=== PATIENT | male | born 1975 ===

== ENCOUNTER 2019-01-30 09:42 | Inpatient (IN) | payer OTHER, BC ==
[~2019-01-30] VITALS: Ht 185.4 cm; Wt 111.2 kg
[2019-01-30] MEDS ORDERED: IV NORMAL SALINE 1000ML BAG 1,000 ML IV SCH (09:48)
[2019-01-30] MEDS ORDERED: ONDANSETRON PF 4 MG/2 ML VIAL. IV ONE (10:00)
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
[2019-01-30] MEDS: HYDROmorphone 2 MG/ML VIAL IV/SQ PRN ×2 (10:05→11:41)
[2019-01-30 10:07] LABS: BASO % 1 % (0-3); EOS # 0.2 x10^3/uL (0.0-0.7); EOS % 2 % (0-3); HEMATOCRIT 45.7 % (39.0-53.0); HEMOGLOBIN 15.6 g/dL (13.0-17.5); LYMPH # 2.2 x10^3/uL (1.0-4.8); LYMPH % 27 % (24-48); MEAN CORPUSCULAR HEMOGLOBIN 29 pg (25-35); MEAN CORPUSCULAR HGB CONC 34 g/dL (31-37); MEAN CORPUSCULAR VOLUME 85 fL (79-100); MONO # 0.3 x10^3/uL (0.0-1.1); MONO % 4 % (0-9); NEUT # 5.2 x10^3/uL (1.8-7.7); NEUT % 66 % (31-73); PLATELET COUNT 243 x10^3/uL (140-400); RED BLOOD COUNT 5.38 x10^6/uL (4.30-5.70); RED CELL DISTRIBUTION WIDTH 13.2 % (11.5-14.5)
[2019-01-30 10:14] LABS: PROTHROMBIN TIME PATIENT 12.5 SEC (11.7-14.0)
[2019-01-30 10:14] LABS: CREATININE ISTAT 0.7 mg/dL (0.5-1.4); HEMOGLOBIN ISTAT 15.6 g/dL (14-18); ION CA ISTAT 1.12 mmol/L (1.13-1.32); POTASSIUM ISTAT 4.4 mmol/L (3.5-5.0)
[2019-01-30 10:20] LABS: CREATININE 0.9 mg/dL (0.7-1.3); GFR 91.7; POTASSIUM 4.5 mmol/L (3.5-5.1)
[2019-01-30 10:35] LABS: ALBUMIN 3.8 g/dL (3.4-5.0); ALBUMIN/GLOBULIN RATIO 1.1 (1.0-1.7); TOTAL BILIRUBIN 0.6 mg/dL (0.2-1.0); TOTAL PROTEIN 7.3 g/dL (6.4-8.2)
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
[2019-01-30] MEDS ORDERED: IOHEXOL 300 MG/ML 100ML VIAL. IV ONE (11:15)
--- NOTE | 2019-01-30 11:17 | EKG ---
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
[2019-01-30] MEDS ORDERED: CONTRAST GIVEN. MC PRN (11:30)
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
[2019-01-30] MEDS ORDERED: ACETAMINOPHEN 500 MG TABLET PO PRN (13:00)
[2019-01-30] MEDS ORDERED: fentaNYL PF VIAL 100 MCG/2 ML VIAL IV PRN (13:00)
[2019-01-30] MEDS ORDERED: HYDROmorphone 2 MG/ML VIAL IVP PRN (13:00)
[2019-01-30] MEDS ORDERED: ONDANSETRON PF 4 MG/2 ML VIAL. IV PRN (13:00)
[2019-01-30] MEDS ORDERED: ONDANSETRON PF 4 MG/2 ML VIAL. IVP PRN ×2 (13:00→13:45)
[2019-01-30] MEDS ORDERED: ZOLPIDEM 5 MG TABLET. PO PRN (13:00)
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
[2019-01-30] MEDS ORDERED: ALPRAZolam 0.5 MG TABLET PO PRN (13:15)
[2019-01-30] MEDS ORDERED: IV NORMAL SALINE 1000ML BAG 1,000 ML IV ONE (13:30)
[2019-01-30] MEDS: LIDOCAINE (700MG/PATCH) PATCH. TD SCH (13:49)
[2019-01-30] MEDS: MUPIROCIN 2 % TOPICAL CREAM 30GM TUBE. TP SCH ×2 (14:11→21:00)
[2019-01-30 15:00] VITALS: BP 118/65
[2019-01-30] MEDS: oxyCODONE/APAP 5/325 1 TAB TABLET PO PRN ×2 (15:38→20:05)
[2019-01-30] MEDS: NAPROXEN 500 MG TABLET PO SCH (15:38)
--- NOTE | 2019-01-30 18:21 | NUR ---
Patients initial lactic acid was 3.2 in ER, notified ER charge nurse and she advised to get a stat lactic acid. Received results of 3.5. notified ICU charge nurse again and she stated to notify the physician. Notified Dr. Myers, she said to continue the normal saline at 100mL continuously and repeat the lactic acid tomorrow morning, she did not want to do normal saline bolus or start antibiotics at this time.
[2019-01-30 19:00] VITALS: BP 95/61
[2019-01-30] MEDS: IV NORMAL SALINE 1000ML BAG 1,000 ML IV SCH (20:04)
[2019-01-30] MEDS ORDERED: PATCH REMOVAL. MC SCH (21:00)
[2019-01-30 22:56] LABS: BILIRUBIN,URINE NEGATIVE (NEG); CLARITY,URINE CLEAR; COLOR,URINE AMBER; NITRITE,URINE NEGATIVE (NEG); PROTEIN,URINE NEGATIVE (NEG-TRACE); UROBILINOGEN,URINE 0.2 mg/dL (0.2 mg/dL)
[2019-01-30 23:01] LABS: SQUAMOUS EPITHELIAL CELL,UR MOD /LPF
[2019-01-30 23:02] LABS: BACTERIA,URINE 0 /HPF (0-FEW)
[2019-01-30 23:05] VITALS: BP 98/55
[2019-01-31 03:13] VITALS: BP 83/48
[2019-01-31] MEDS: IV NORMAL SALINE 1000ML BAG 1,000 ML IV SCH (04:43)
[2019-01-31 07:00] VITALS: BP 115/64
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
[2019-01-31] MEDS: NAPROXEN 500 MG TABLET PO SCH (10:38)
[2019-01-31] MEDS: LIDOCAINE (700MG/PATCH) PATCH. TD SCH (10:39)
[2019-01-31] MEDS: MUPIROCIN 2 % TOPICAL CREAM 30GM TUBE. TP SCH (10:56)
[2019-01-31 11:00] VITALS: BP 115/67
[2019-01-31] MEDS ORDERED: LIDO700A21 TD (11:58)
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
--- NOTE | 2019-01-31 13:30 | NUR ---
Patient discharged to home. Discharge instructions, medications, wound care, and follow up appointments discussed with patient and spouse. Both verbalized understanding. Prescription and discharge paperwork given to patient. IV discontinued. All belongings with patient. Patient ambulated out with staff and spouse at this time to POC.
== END 2019-01-31 13:30 | disposition home or self-care (01) | DRG 605 ==
LOC: ER 09:42 → 4 NORTH 12:45 → ER 13:30
PROVIDERS: ADMIT Internal Medicine; ATTEND Internal Medicine
DX: S20.219A Contusion of unspecified front wall of thorax, initial encounter (principal); E87.2 Acidosis; R07.89 Other chest pain; S30.1XXA Contusion of abdominal wall, initial encounter; K21.0 Gastro-esophageal reflux disease with esophagitis; S16.1XXA Strain of muscle, fascia and tendon at neck level, initial encounter; E66.9 Obesity, unspecified; M46.90 Unspecified inflammatory spondylopathy, site unspecified; M48.07 Spinal stenosis, lumbosacral region; V43.52XA Car driver injured in collision with other type car in traffic accident, initial encounter; Y92.410 Unspecified street and highway as the place of occurrence of the external cause; Y93.89 Activity, other specified; Y92.89 Other specified places as the place of occurrence of the external cause; Y99.8 Other external cause status; Z90.49 Acquired absence of other specified parts of digestive tract; Z68.32 Body mass index [BMI] 32.0-32.9, adult
CPT/HCPCS: 36415; 70450; 71045; 71260; 72125; 72128; 72131; 73030; 73590; 74177; 80047; 80053; 81001; 82550; 83036; 83605; 85025; 85610; 85730; 86850; 86900; 86901; 87086; 93005; 96361; 96374; 96375; 96376; J1170; J2405; J3010; J7030; Q9967; 99285-25; G0378

== ENCOUNTER → 2019-05-11 | Outpatient (CLI) | payer OTHER, BC ==
[~2019-05-11] MED LIST: LIDO700A21 TD
[2019-05-13 12:11] LABS: ALBUM 3.7 g/dL (2.9-4.4); ALPHA 1 0.2 g/dL (0.0-0.4); ALPHA 2 0.8 g/dL (0.4-1.0); BETA 1.2 g/dL (0.7-1.3); PROTEIN TOTAL 6.9 g/dL (6.0-8.5); SPEP AG RATIO 1.2 (0.7-1.7)
[2019-05-13 19:09] LABS: ANA INTERP Negative (.)
[2019-05-17 07:13] LABS: VITAMIN E(GAMMA TOCOPHEROL) 2.2 mg/L (0.5-5.5)
== END | disposition home or self-care (01) ==
LOC: LAB 10:58
PROVIDERS: ATTEND Psychiatry & Neurology Neurology with Special Qualifications in Child Neurology
DX: G62.89 Other specified polyneuropathies (principal); Z98.84 Bariatric surgery status
CPT/HCPCS: 36415; 82607; 82746; 84165; 84446; 85651; 86038

== ENCOUNTER 2020-05-12 00:34 | Inpatient (IN) | payer BC, OTHER ==
[~2020-05-12] VITALS: Ht 182.9 cm; Wt 109.9 kg
[2020-05-12 01:49] LABS: BILIRUBIN,URINE NEGATIVE (NEG); CLARITY,URINE CLEAR; COLOR,URINE YELLOW; NITRITE,URINE NEGATIVE (NEG); PROTEIN,URINE NEGATIVE (NEG-TRACE); UROBILINOGEN,URINE 0.2 mg/dL (0.2 mg/dL)
[2020-05-12] MEDS ORDERED: ONDANSETRON PF 4 MG/2 ML VIAL. IVP ONE (02:00)
[2020-05-12] MEDS ORDERED: MORPHINE SULFATE 10 MG/ML VIAL. IV ONE ×2 (02:00→05:30)
[2020-05-12 02:01] LABS: BACTERIA,URINE 0 /HPF (0-FEW); RBC,URINE 0 /HPF (0-2); WBC,URINE OCC /HPF (0-4)
--- NOTE | 2020-05-12 02:07 | ED.ADGEN ---
Past Medical History Past Medical History: Diabetes-Type II, Other Additional Past Medical Histor: PRE-DM Past Surgical History: Appendectomy, Other Additional Past Surgical Histo: MULTIPLE CYST REMOVAL, GASTRIC SLEEVE Smoking Status: Never Smoker Alcohol Use: Occasionally Drug Use: None General Adult EDM: Chief Complaint: ABDOMINAL PAIN HPI: HPI: Patient is a 44-year-old male who presents to the emergency room complaining of severe epigastric abdominal pain that started 9 hours ago. This is progressively gotten worse since onset. He has been having intermittent pain for the last week, however it has always gone away on its own without any treat ment. Is not tried anything at home for this. It feels like a burning aching pain. He has some nausea but denies any vomiting, diarrhea, constipation, cough, runny nose, fever, shortness of breath Review of Systems: Review of Systems: Complete ROS is negative unless otherwise documented in HPI Current Medications: Current Medications Medications (Trade) Dose Ordered Sig/Gasper Start Time Stop Time Status Last Admin Dose Admin Info (CONTRAST GIVEN -- Rx MONITORING) 1 each PRN DAILY PRN 05/12/20 02:15 05/14/20 02:14 Iohexol (Omnipaque 240 Mg/ml) 30 ml 1X ONCE 05/12/20 02:15 05/12/20 02:16 DC 05/12/20 02:20 30 ML Iohexol (Omnipaque 300 Mg/ml) 75 ml 1X ONCE 05/12/20 02:15 05/12/20 02:16 DC 05/12/20 03:45 75 ML Morphine Sulfate (Morphine Sulfate) 5 mg 1X ONCE 05/12/20 05:30 05/12/20 05:31 DC 05/12/20 05:56 5 MG Ondansetron HCl (Zofran) 4 mg 1X ONCE 05/12/20 02:00 05/12/20 02:02 DC 05/12/20 02:22 4 MG Sodium Chloride 1,000 ml @ 125 mls/hr Q8H 05/12/20 05:30 05/13/20 05:29 05/12/20 13:18 125 MLS/HR Allergies: Allergies: Allergies Coded Allergies Type Severity Reaction Last Updated Verified No Known Drug Allergies 01/30/19 No Physical Exam: PE: General: Awake, alert, mild distress. Well Nourished, well hydrated. Cooperative HEENT: Atraumatic, EOMI, PERRL, airway patent, moist oral mucosa Neck: Supple, trachea midline Respiratory: CTA bilaterally, normal effort, no wheezing/crackles CV: RRR, no murmur, cap refill <2 GI: Soft, nondistended, epigastric tenderness, no masses MSK: No obvious deformities Skin: Warm, dry, intact Neuro: A&O x3, speech NL, sensory and motor grossly intact, no focal deficits Psych: Normal affect, normal mood, not suicidal or homicidal Current Patient Data: Labs: Laboratory Tests Test 05/12/20 01:25 05/12/20 02:02 Urine Collection Type Unknown Urine Color Yellow Urine Clarity Clear Urine pH 6.0 (<5.0-8.0) Urine Specific Fabius >=1.030 (1.000-1.030) Urine Protein Negative mg/dL (NEG-TRACE) Urine Glucose (UA) Negative mg/dL (NEG) Urine Ketones (Stick) 40 mg/dL (NEG) Urine Blood Negative (NEG) Urine Nitrite Negative (NEG) Urine Bilirubin Negative (NEG) Urine Urobilinogen Dipstick 0.2 mg/dL (0.2 mg/dL) Urine Leukocyte Esterase Negative (NEG) Urine RBC 0 /HPF (0-2) Urine WBC Occ /HPF (0-4) Urine Squamous Epithelial Cells Few /LPF Urine Bacteria 0 /HPF (0-FEW) Urine Mucus Mod /LPF White Blood Count 8.6 x10^3/uL (4.0-11.0) Red Blood Count 4.92 x10^6/uL (4.30-5.70) Hemoglobin 14.5 g/dL (13.0-17.5) Hematocrit 42.1 % (39.0-53.0) Mean Corpuscular Volume 86 fL (79-100) Mean Corpuscular Hemoglobin 30 pg (25-35) Mean Corpuscular Hemoglobin Concent 35 g/dL (31-37) Red Cell Distribution Width 13.5 % (11.5-14.5) Platelet Count 252 x10^3/uL (140-400) Neutrophils (%) (Auto) 80 % (31-73) H Lymphocytes (%) (Auto) 14 % (24-48) L Monocytes (%) (Auto) 5 % (0-9) Eosinophils (%) (Auto) 1 % (0-3) Basophils (%) (Auto) 0 % (0-3) Neutrophils # (Auto) 6.9 x10^3/uL (1.8-7.7) Lymphocytes # (Auto) 1.2 x10^3/uL (1.0-4.8) Monocytes # (Auto) 0.4 x10^3/uL (0.0-1.1) Eosinophils # (Auto) 0.1 x10^3/uL (0.0-0.7) Basophils # (Auto) 0.0 x10^3/uL (0.0-0.2) Sodium Level 137 mmol/L (136-145) Potassium Level 3.9 mmol/L (3.5-5.1) Chloride Level 102 mmol/L (98-107) Carbon Dioxide Level 25 mmol/L (21-32) Anion Gap 10 (6-14) Blood Urea Nitrogen 12 mg/dL (8-26) Creatinine 0.9 mg/dL (0.7-1.3) Estimated GFR (Cockcroft-Gault) 91.3 BUN/Creatinine Ratio 13 (6-20) Glucose Level 174 mg/dL (70-99) H Calcium Level 9.0 mg/dL (8.5-10.1) Total Bilirubin 0.6 mg/dL (0.2-1.0) Aspartate Amino Transferase (AST) 80 U/L (15-37) H Alanine Aminotransferase (ALT) 134 U/L (16-63) H Alkaline Phosphatase 93 U/L (46-116) Total Protein 7.5 g/dL (6.4-8.2) Albumin 3.9 g/dL (3.4-5.0) Albumin/Globulin Ratio 1.1 (1.0-1.7) Triglycerides Level 183 mg/dL (0-150) H Lipase 835 U/L (73-393) H Laboratory Tests 05/12/20 02:02 Laboratory Tests 05/12/20 02:02 Vital Signs: Vital Signs Date Time Temp Pulse Resp B/P (MAP) Pulse Ox O2 Delivery O2 Flow Rate FiO2 05/12/20 05:34 64 132/72 (92) 96 Room Air 05/12/20 02:25 20 05/12/20 00:42 98.1 98.1 EKG: EKG: [] Heart Score: Risk Factors: Risk Factors: DM, Current or recent (<one month) smoker, HTN, HLP, family history of CAD, obesity. Risk Scores: Score 0 - 3: 2.5% MACE over next 6 weeks - Discharge Home Score 4 - 6: 20.3% MACE over next 6 weeks - Admit for Clinical Observation Score 7 - 10: 72.7% MACE over next 6 weeks - Early Invasive Strategies Radiology/Procedures: Radiology/Procedures: [] Course & Med Decision Making: Course & Med Decision Making Pertinent Labs and Imaging studies reviewed. (See chart for details) Patient is a 44-year-old male who presents to the emergency room complaining of severe epigastric abdominal pain for the last 9 hours. Patient does not have signs of peritonitis on exam. He is complaining of severe pain. Will do a full abdominal work-up including abdominal labs and CT abdomen pelvis. Patient treated symptomatically. Patient has an elevated lipase and some mild elevation of LFTs. There is concern at this time that this could be a gallstone pancreatitis. Ultrasound was ordered, however given limitation of ultrasound coverage at this time it will not be done until the morning. Consult order was placed for surgery to evaluate the patient in the morning. Patient was given fluids here in the emergency room and will be admitted to the hospitalist. Papa Disclaimer: Papa Disclaimer: This electronic medical record was generated, in whole or in part, using a voice recognition dictation system. Departure Departure Impression: Primary Impression: Pancreatitis Disposition: ADMITTED INPT THIS HOSP Condition: STABLE Referrals: CONCETTA VASQUEZ (PCP) AGATA MIRELES MD May 12, 2020 02:07
[2020-05-12] MEDS ORDERED: IOHEXOL 300 MG/ML 100ML VIAL. IV ONE (02:15)
[2020-05-12] MEDS ORDERED: CONTRAST GIVEN. MC PRN (02:15)
[2020-05-12] MEDS ORDERED: IOHEXOL 240 MG/ML 50ML VIAL. PO ONE (02:15)
[2020-05-12 03:01] LABS: BASO % 0 % (0-3); EOS # 0.1 x10^3/uL (0.0-0.7); EOS % 1 % (0-3); HEMATOCRIT 42.1 % (39.0-53.0); HEMOGLOBIN 14.5 g/dL (13.0-17.5); LYMPH # 1.2 x10^3/uL (1.0-4.8); LYMPH % 14 % (24-48); MEAN CORPUSCULAR HEMOGLOBIN 30 pg (25-35); MEAN CORPUSCULAR HGB CONC 35 g/dL (31-37); MEAN CORPUSCULAR VOLUME 86 fL (79-100); MONO # 0.4 x10^3/uL (0.0-1.1); MONO % 5 % (0-9); NEUT # 6.9 x10^3/uL (1.8-7.7); NEUT % 80 % (31-73); PLATELET COUNT 252 x10^3/uL (140-400); RED BLOOD COUNT 4.92 x10^6/uL (4.30-5.70); RED CELL DISTRIBUTION WIDTH 13.5 % (11.5-14.5); WHITE BLOOD COUNT 8.6 x10^3/uL (4.0-11.0)
[2020-05-12 03:09] LABS: CREATININE 0.9 mg/dL (0.7-1.3); GFR 91.3; POTASSIUM 3.9 mmol/L (3.5-5.1)
[2020-05-12 03:15] LABS: ALBUMIN 3.9 g/dL (3.4-5.0); ALBUMIN/GLOBULIN RATIO 1.1 (1.0-1.7); TOTAL BILIRUBIN 0.6 mg/dL (0.2-1.0); TOTAL PROTEIN 7.5 g/dL (6.4-8.2)
--- NOTE | 2020-05-12 04:17 | RAD ---
INDICATION: Reason: severe abd pain, OMNI 240 30 ML PO, OMNI 300 75 ML IV / Spl. Instructions: DRINKI NG @O220 SCANNED @0345 / History: . COMPARISON: January 2019 TECHNIQUE: Axial CT images obtained through the abdomen and pelvis with contrast. One or more of the following individualized dose reduction techniques were utilized for this examinat ion: 1. Automated exposure control; 2. Adjustment of the mA and/or kV according to patient size; 3 . Use of iterative reconstruction technique. FINDINGS: Small hiatal hernia with contrast within. Abdominal aorta is not aneurysmal. Small fat-containing right inguinal hernia. No intrahepatic bile duct dilation. Gallbladder somewhat distended with mild indistinctness of adjacent fat. No peripancreatic fluid sekou ection. Spleen is unremarkable. No left-sided hydronephrosis. Urinary bladder is partially distended. No right-sided hydronephrosis. Surgical clips right lower quadrant could be from post appendectomy changes. Degenerative changes of the spine IMPRESSION: * Gallbladder is distended with adjacent haziness the fat. Would correlate with symptoms in the soheila on given that gallbladder disease could have this appearance. If further evaluation is desired ultras ound could further evaluate. * No evidence of bowel obstruction Electronically signed by: Arnol Mallory MD (05/12/2020 4:13 AM) [id number]
[2020-05-12] MEDS ORDERED: MORPHINE SULFATE 2 MG/ML VIAL. IV PRN (05:30)
[2020-05-12] MEDS: IV NORMAL SALINE 1000ML BAG 1,000 ML IV SCH ×3 (05:57→22:04)
--- NOTE | 2020-05-12 07:10 | RAD ---
INDICATION : Reason: RUQ pain / Spl. Instructions: / History: COMPARISON: CT from earlier same day TECHNIQUE: Multiple ultrasound images obtained through the abdomen in grayscale and color. FINDINGS: Liver: Prominent in size and appears echogenic. Portions not well seen secondary to poor beam penetra tion. Gallbladder: Gallstones are seen. Dilated up to 13 cm. Wall is thickened. IVC: Partially distended at level of liver. Common Bile Duct: Upper limits of normal, 6 mm Pancreas: Obscured by bowel gas Right Kidney: No hydronephrosis. IMPRESSION: * Dilated gallbladder with thickened wall and gallstones. Would correlate with symptoms in the soheila on since cholecystitis can have this appearance in the correct clinical context. Electronically signed by: Arnol Mallory MD (05/12/2020 7:06 AM) [id number]
[2020-05-12 07:50] VITALS: BP 125/80
[2020-05-12] MEDS ORDERED: fentaNYL PF VIAL 100 MCG/2 ML VIAL IVP PRN (08:00)
[2020-05-12] MEDS ORDERED: ONDANSETRON PF 4 MG/2 ML VIAL. IVP PRN (08:00)
[2020-05-12] MEDS ORDERED: CALCIUM CARBONATE 500 MG TAB.CHEW PO PRN (08:00)
[2020-05-12] MEDS ORDERED: PROCHLORPERAZINE 10 MG/2 ML VIAL. IVP PRN (08:00)
[2020-05-12] MEDS ORDERED: ZOLPIDEM 5 MG TABLET. PO PRN (08:00)
[2020-05-12] MEDS ORDERED: HYDROmorphone 2 MG/ML VIAL IVP PRN (08:00)
[2020-05-12] MEDS ORDERED: MAGNESIUM HYDROXIDE 2,400 MG/30 ML ORAL.SUSP. PO PRN (08:00)
[2020-05-12] MEDS ORDERED: BISACODYL 10 MG SUPP.RECT. PR PRN (08:00)
[2020-05-12] MEDS ORDERED: DEXTROSE 50% 25 GM / 50ML DISP.SYRIN. IV PRN (08:15)
--- NOTE | 2020-05-12 08:15 | PDOC1 ---
History and Physical Date of Admission Date of Admission DATE: 05/12/20 TIME: 07:40 Identification/Chief Complaint Chief Complaint Abdominal pain Source Source: Chart review, Patient History of Present Illness History of Present Illness Patient is a 44-year-old male who presents to the ER with complaints of worsening epigastric pain. He has had intermittent stabbing pain for the past week, 12/11. His pain was only resolved spontaneously, but he came to the ER when his pain persisted. He reports some associated nausea, but denies any vomiting, diarrhea, or fever. CT abdomen/pelvis and ultrasound obtained in ER showing dilated gallbladder with thickened wall and gallstones, concerning for cholecystitis. Will admit patient for further medical management. Past Medical History Endocrine: Diabetes Past Surgical History Past Surgical History: Appendectomy, Other (Gastric sleeve, multiple cyst removal) Family History Family History: No Significant Social History Smoke: No ALCOHOL: occassional Drugs: None Current Problem List Problem List Problems Medical Problems: (1) Pancreatitis Status: Acute Current Medications Current Medications Current Medications Ondansetron HCl (Zofran) 4 mg 1X ONCE IVP Last administered on 05/12/20at 02:22; Start 05/12/20 at 02:00; Stop 05/12/20 at 02:02; Status DC Morphine Sulfate (Morphine Sulfate) 5 mg 1X ONCE IV Last administered on 05/12/20at 02:25; Start 05/12/20 at 02:00; Stop 05/12/20 at 02:02; Status DC Iohexol (Omnipaque 240 Mg/ml) 30 ml 1X ONCE PO Last administered on 05/12/20at 02:20; Start 05/12/20 at 02:15; Stop 05/12/20 at 02:16; Status DC Iohexol (Omnipaque 300 Mg/ml) 75 ml 1X ONCE IV Last administered on 05/12/20at 03:45; Start 05/12/20 at 02:15; Stop 05/12/20 at 02:16; Status DC Info (CONTRAST GIVEN -- Rx MONITORING) 1 each PRN DAILY PRN MC SEE COMMENTS; Start 05/12/20 at 02:15; Stop 05/14/20 at 02:14 Morphine Sulfate (Morphine Sulfate) 2 mg PRN Q2HR PRN IV PAIN; Start 05/12/20 at 05:30; Stop 05/13/20 at 05:29 Sodium Chloride 1,000 ml @ 125 mls/hr Q8H IV Last administered on 05/12/20at 05:57; Start 05/12/20 at 05:30; Stop 05/13/20 at 05:29 Morphine Sulfate (Morphine Sulfate) 5 mg 1X ONCE IV Last administered on 05/12/20at 05:56; Start 05/12/20 at 05:30; Stop 05/12/20 at 05:31; Status DC Active Scripts Active Lidocaine PATCH (Lidocaine) 1 Each Adh..patch 1 Patch TD DAILY 30 Days Reported No Known Medications Prior To Admisstion (Info) Each 1 Each MC 1X Allergies Allergies: Coded Allergies: No Known Drug Allergies (Unverified , 01/30/19) ROS Review of System GENERAL: No history of weight change, weakness or fevers. SKIN: No bruising, hair changes or rashes. EYES: No blurred, double or loss of vision. NOSE AND THROAT: No history of nosebleeds, hoarseness or sore throat. HEART: Denies chest pain, denies palpitations. LUNGS: Denies cough, hemoptysis, wheezing or shortness of breath. GASTROINTESTINAL: Abdominal pain, nausea. Denies vomiting or diarrhea. GENITOURINARY: Denies dysuria, frequency, urgency, hematuria. NEUROLOGIC: Denies history of numbness, tingling, tremor or weakness. PSYCHIATRIC: Denies anxiety, denies depression. ENDOCRINE: No history of heat or cold intolerance, polyuria or polydipsia. EXTREMITIES: Denies muscle weakness, joint pain, pain on walking or stiffness. Physical Exam Physical Exam General: Alert, Oriented X3, Cooperative, moderate distress HEENT: PERRLA, EOMI Lungs: Clear to auscultation, Normal air movement Heart: RRR, no murmurs Cardiovascular: S1, S2 Abdomen: Right upper quadrant tenderness. Normal bowel sounds, Soft. Extremities: No clubbing, No cyanosis Skin: No rashes, No significant lesion Neuro: Normal speech, Normal tone, Sensation intact Psych/Mental Status: Mental status NL, Mood NL Vitals Vitals Vital Signs Date Time Temp Pulse Resp B/P (MAP) Pulse Ox O2 Delivery O2 Flow Rate FiO2 05/12/20 06:34 64 116/71 (86) 96 Room Air 05/12/20 05:56 16 05/12/20 00:42 98.1 98.1 Labs Labs Laboratory Tests Test 05/12/20 01:25 05/12/20 02:02 Urine Collection Type Unknown Urine Color Yellow Urine Clarity Clear Urine pH 6.0 (<5.0-8.0) Urine Specific [place] >=1.030 (1.000-1.030) Urine Protein Negative mg/dL (NEG-TRACE) Urine Glucose (UA) Negative mg/dL (NEG) Urine Ketones (Stick) 40 mg/dL (NEG) Urine Blood Negative (NEG) Urine Nitrite Negative (NEG) Urine Bilirubin Negative (NEG) Urine Urobilinogen Dipstick 0.2 mg/dL (0.2 mg/dL) Urine Leukocyte Esterase Negative (NEG) Urine RBC 0 /HPF (0-2) Urine WBC Occ /HPF (0-4) Urine Squamous Epithelial Cells Few /LPF Urine Bacteria 0 /HPF (0-FEW) Urine Mucus Mod /LPF White Blood Count 8.6 x10^3/uL (4.0-11.0) Red Blood Count 4.92 x10^6/uL (4.30-5.70) Hemoglobin 14.5 g/dL (13.0-17.5) Hematocrit 42.1 % (39.0-53.0) Mean Corpuscular Volume 86 fL (79-100) Mean Corpuscular Hemoglobin 30 pg (25-35) Mean Corpuscular Hemoglobin Concent 35 g/dL (31-37) Red Cell Distribution Width 13.5 % (11.5-14.5) Platelet Count 252 x10^3/uL (140-400) Neutrophils (%) (Auto) 80 % (31-73) Lymphocytes (%) (Auto) 14 % (24-48) Monocytes (%) (Auto) 5 % (0-9) Eosinophils (%) (Auto) 1 % (0-3) Basophils (%) (Auto) 0 % (0-3) Neutrophils # (Auto) 6.9 x10^3/uL (1.8-7.7) Lymphocytes # (Auto) 1.2 x10^3/uL (1.0-4.8) Monocytes # (Auto) 0.4 x10^3/uL (0.0-1.1) Eosinophils # (Auto) 0.1 x10^3/uL (0.0-0.7) Basophils # (Auto) 0.0 x10^3/uL (0.0-0.2) Sodium Level 137 mmol/L (136-145) Potassium Level 3.9 mmol/L (3.5-5.1) Chloride Level 102 mmol/L (98-107) Carbon Dioxide Level 25 mmol/L (21-32) Anion Gap 10 (6-14) Blood Urea Nitrogen 12 mg/dL (8-26) Creatinine 0.9 mg/dL (0.7-1.3) Estimated GFR (Cockcroft-Gault) 91.3 BUN/Creatinine Ratio 13 (6-20) Glucose Level 174 mg/dL (70-99) Calcium Level 9.0 mg/dL (8.5-10.1) Total Bilirubin 0.6 mg/dL (0.2-1.0) Aspartate Amino Transf (AST/SGOT) 80 U/L (15-37) Alanine Aminotransferase (ALT/SGPT) 134 U/L (16-63) Alkaline Phosphatase 93 U/L (46-116) Total Protein 7.5 g/dL (6.4-8.2) Albumin 3.9 g/dL (3.4-5.0) Albumin/Globulin Ratio 1.1 (1.0-1.7) Triglycerides Level 183 mg/dL (0-150) Lipase 835 U/L (73-393) Laboratory Tests Test 05/12/20 01:25 05/12/20 02:02 Urine Collection Type Unknown Urine Color Yellow Urine Clarity Clear Urine pH 6.0 (<5.0-8.0) Urine Specific [place] >=1.030 (1.000-1.030) Urine Protein Negative mg/dL (NEG-TRACE) Urine Glucose (UA) Negative mg/dL (NEG) Urine Ketones (Stick) 40 mg/dL (NEG) Urine Blood Negative (NEG) Urine Nitrite Negative (NEG) Urine Bilirubin Negative (NEG) Urine Urobilinogen Dipstick 0.2 mg/dL (0.2 mg/dL) Urine Leukocyte Esterase Negative (NEG) Urine RBC 0 /HPF (0-2) Urine WBC Occ /HPF (0-4) Urine Squamous Epithelial Cells Few /LPF Urine Bacteria 0 /HPF (0-FEW) Urine Mucus Mod /LPF White Blood Count 8.6 x10^3/uL (4.0-11.0) Red Blood Count 4.92 x10^6/uL (4.30-5.70) Hemoglobin 14.5 g/dL (13.0-17.5) Hematocrit 42.1 % (39.0-53.0) Mean Corpuscular Volume 86 fL (79-100) Mean Corpuscular Hemoglobin 30 pg (25-35) Mean Corpuscular Hemoglobin Concent 35 g/dL (31-37) Red Cell Distribution Width 13.5 % (11.5-14.5) Platelet Count 252 x10^3/uL (140-400) Neutrophils (%) (Auto) 80 % (31-73) Lymphocytes (%) (Auto) 14 % (24-48) Monocytes (%) (Auto) 5 % (0-9) Eosinophils (%) (Auto) 1 % (0-3) Basophils (%) (Auto) 0 % (0-3) Neutrophils # (Auto) 6.9 x10^3/uL (1.8-7.7) Lymphocytes # (Auto) 1.2 x10^3/uL (1.0-4.8) Monocytes # (Auto) 0.4 x10^3/uL (0.0-1.1) Eosinophils # (Auto) 0.1 x10^3/uL (0.0-0.7) Basophils # (Auto) 0.0 x10^3/uL (0.0-0.2) Sodium Level 137 mmol/L (136-145) Potassium Level 3.9 mmol/L (3.5-5.1) Chloride Level 102 mmol/L (98-107) Carbon Dioxide Level 25 mmol/L (21-32) Anion Gap 10 (6-14) Blood Urea Nitrogen 12 mg/dL (8-26) Creatinine 0.9 mg/dL (0.7-1.3) Estimated GFR (Cockcroft-Gault) 91.3 BUN/Creatinine Ratio 13 (6-20) Glucose Level 174 mg/dL (70-99) Calcium Level 9.0 mg/dL (8.5-10.1) Total Bilirubin 0.6 mg/dL (0.2-1.0) Aspartate Amino Transf (AST/SGOT) 80 U/L (15-37) Alanine Aminotransferase (ALT/SGPT) 134 U/L (16-63) Alkaline Phosphatase 93 U/L (46-116) Total Protein 7.5 g/dL (6.4-8.2) Albumin 3.9 g/dL (3.4-5.0) Albumin/Globulin Ratio 1.1 (1.0-1.7) Triglycerides Level 183 mg/dL (0-150) Lipase 835 U/L (73-393) Images Images INDICATION : Reason: RUQ pain / Spl. Instructions: / History: COMPARISON: CT from earlier same day TECHNIQUE: Multiple ultrasound images obtained through the abdomen in grayscale and color. FINDINGS: Liver: Prominent in size and appears echogenic. Portions not well seen secondary to poor beam penetration. Gallbladder: Gallstones are seen. Dilated up to 13 cm. Wall is thickened. IVC: Partially distended at level of liver. Common Bile Duct: Upper limits of normal, 6 mm Pancreas: Obscured by bowel gas Right Kidney: No hydronephrosis. IMPRESSION: * Dilated gallbladder with thickened wall and gallstones. Would correlate with symptoms in the region since cholecystitis can have this appearance in the correct clinical context. Axial CT images obtained through the abdomen and pelvis with contrast. One or more of the following individualized dose reduction techniques were utilized for this examination: 1. Automated exposure control; 2. Adjustment of the mA and/or kV according to patient size; 3. Use of iterative reconstruction technique. FINDINGS: Small hiatal hernia with contrast within. Abdominal aorta is not aneurysmal. Small fat-containing right inguinal hernia. No intrahepatic bile duct dilation. Gallbladder somewhat distended with mild indistinctness of adjacent fat. No peripancreatic fluid collection. Spleen is unremarkable. No left-sided hydronephrosis. Urinary bladder is partially distended. No right-sided hydronephrosis. Surgical clips right lower quadrant could be from post appendectomy changes. Degenerative changes of the spine IMPRESSION: * Gallbladder is distended with adjacent haziness the fat. Would correlate with symptoms in the region given that gallbladder disease could have this appearance. If further evaluation is desired ultrasound could further evaluate. VTE Prophylaxis Ordered VTE Prophylaxis Devices: No VTE Pharmacological Prophylaxi: Yes Assessment/Plan Assessment/Plan Gallstone pancreatitis Transaminitis DM2 Plan: Admit patient with GI and general surgery consultations N.p.o. with IV fluids Pain management with fentanyl, dilaudid IV Zofran as needed MDSS insulin FEN - NPO PPX - Heparin FULL CODE Dispo - inpatient for above Justifications for Admission Other Justification JEAN CLAUDE CEDEÑO MD May 12, 2020 08:15
[2020-05-12] MEDS ORDERED: CALC-98 PO (09:09)
[2020-05-12] MEDS ORDERED: LACT1CAP6 PO (09:09)
[2020-05-12] MEDS ORDERED: METF500T16 PO (09:09)
[2020-05-12] MEDS ORDERED: OMEG1CAP6 PO (09:09)
[2020-05-12 10:57] VITALS: BP 112/65
[2020-05-12] MEDS: INSULIN LISPRO 300 UNITS/3 ML VIAL. SQ SCH ×2 (12:00→17:00)
[2020-05-12 14:58] VITALS: BP 110/61
--- NOTE | 2020-05-12 15:06 | PDOC2 ---
CONSULT Date of Consult Date of Consult DATE: 05/12/20 TIME: 14:59 Reason for Consult Reason for Consult: Nominal pain, pancreatitis, cholelithiasis History of Present Illness Reason for Visit: This is a pleasant 44-year-old gentleman who presents with a several day history of intermittent upper abdominal pain. He describes it as a burning pain earlier this week he felt like it might be gas and it did resolve on its own. However it seemed to recur more severely the day before admission. Associated with mild nausea but no vomiting. He had no fever. He did have a couple of loose stools this week but generally has a regular bowel pattern with 2 bowel movements per day. He denies any bleeding. He denies any regular alcohol use and does not take NSAIDs or ulcerogenic medications regularly. He had a gastric sleeve done back in 2017 and lost 90 pounds over that year. He also was diagnosed with diab etes after that and has been on medication since then. He was not aware of a diagnosis of cholelithiasis but he does not recall having had previous abdominal imaging studies done. He denies chronic heartburn, dyspepsia, nausea or other GI complaints other than some occasional dietary related symptoms. Past Medical History Endocrine: Diabetes, Other (Obesity) Past Surgical History Past Surgical History: Appendectomy, Other (Gastric sleeve, multiple cyst removal) Family History Family History: No Significant Social History No ALCOHOL: occassional Drugs: None Current Problem List Problem List Problems Medical Problems: (1) Pancreatitis Status: Acute Current Medications Current Medications Current Medications Ondansetron HCl (Zofran) 4 mg 1X ONCE IVP Last administered on 05/12/20at 02:22; Start 05/12/20 at 02:00; Stop 05/12/20 at 02:02; Status DC Morphine Sulfate (Morphine Sulfate) 5 mg 1X ONCE IV Last administered on 05/12/20at 02:25; Start 05/12/20 at 02:00; Stop 05/12/20 at 02:02; Status DC Iohexol (Omnipaque 240 Mg/ml) 30 ml 1X ONCE PO Last administered on 05/12/20at 02:20; Start 05/12/20 at 02:15; Stop 05/12/20 at 02:16; Status DC Iohexol (Omnipaque 300 Mg/ml) 75 ml 1X ONCE IV Last administered on 05/12/20at 03:45; Start 05/12/20 at 02:15; Stop 05/12/20 at 02:16; Status DC Info (CONTRAST GIVEN -- Rx MONITORING) 1 each PRN DAILY PRN MC SEE COMMENTS; Start 05/12/20 at 02:15; Stop 05/14/20 at 02:14 Morphine Sulfate (Morphine Sulfate) 2 mg PRN Q2HR PRN IV PAIN; Start 05/12/20 at 05:30; Stop 05/12/20 at 08:11; Status DC Sodium Chloride 1,000 ml @ 125 mls/hr Q8H IV Last administered on 05/12/20at 13:18; Start 05/12/20 at 05:30; Stop 05/13/20 at 05:29 Morphine Sulfate (Morphine Sulfate) 5 mg 1X ONCE IV Last administered on 05/12/20at 05:56; Start 05/12/20 at 05:30; Stop 05/12/20 at 05:31; Status DC Hydromorphone HCl (Dilaudid) 2 mg PRN Q4HRS PRN IVP PAIN; Start 05/12/20 at 08:00 Fentanyl Citrate (Fentanyl 2ml Vial) 50 mcg PRN Q2HR PRN IVP PAIN; Start 05/12 at 08:00 Ondansetron HCl (Zofran) 4 mg PRN Q6HRS PRN IVP NAUSEA/VOMITING; Start 05/12/20 at 08:00 Prochlorperazine Edisylate (Compazine) 10 mg PRN Q6HRS PRN IVP NAUSEA/VOMITING; Start 05/12/20 at 08:00 Al Hydroxide/Mg Hydroxide (Mylanta Plus Xs) 30 ml PRN Q3HRS PRN PO HEARTBURN / GAS; Start 05/12/20 at 08:00 Calcium Carbonate/ Glycine (Tums) 500 mg PRN Q3HRS PRN PO UPSET STOMACH; Start 05/12/20 at 08:00 Zolpidem Tartrate (Ambien) 5 mg PRN QHS PRN PO INSOMNIA, MAY REPEAT IN 1HR; Start 05/12/20 at 08:00 Acetaminophen (Tylenol) 650 mg PRN Q6HRS PRN PO Headaches, Temp > 101.5F; Start 05/12/20 at 08:00 Magnesium Hydroxide (Milk Of Magnesia) 2,400 mg PRN Q12HR PRN PO CONSTIPATION; Start 05/12/20 at 08:00 Bisacodyl (Dulcolax Supp) 10 mg PRN DAILY PRN [place] CONSTIPATION; Start 05/12/20 at 08:00 Heparin Sodium (Porcine) (Heparin Sodium) 5,000 unit Q8HRS SQ ; Start 05/12/20 at 14:00 Insulin Human Lispro (HumaLOG) 0-7 UNITS TIDWMEALS SQ ; Start 05/12/20 at 12:00 Dextrose (Dextrose 50%-Water Syringe) 12.5 gm PRN Q15MIN PRN IV SEE COMMENTS; Start 05/12/20 at 08:15 Active Scripts Active Reported Probiotic (Lactobacillus Acidophilus) 1 Each Capsule 1 Each PO BID Fish Oil 1,000 Mg Capsule ([place]-3 Fatty Acids/Fish Oil) 1 Each Capsule 1 Each PO BID Calcium + Vitamin D Tablet (Calcium Carbonate/Vitamin D3) 1 Each Tablet 1 Each PO BID Metformin Hcl 500 Mg Tablet 500 Mg PO BIDWMEALS No Known Medications Prior To Admisstion (Info) Each 1 Each MC 1X Allergies Allergies: Coded Allergies: No Known Drug Allergies (Unverified , 01/30/19) Physical Exam General: Alert, Oriented X3, Cooperative HEENT: Atraumatic, PERRLA Lungs: Clear to auscultation Heart: Regular rate, Normal S1, Normal S2 Abdomen: Normal bowel sounds, Soft, No hepatosplenomegaly, No masses, Other (Mild periumbilical discomfort without point tenderness) Extremities: No clubbing, No cyanosis Neuro: Normal speech Psych/Mental Status: Mental status NL Vitals VITALS Vital Signs Date Time Temp Pulse Resp B/P (MAP) Pulse Ox O2 Delivery O2 Flow Rate FiO2 05/12/20 10:57 98.7 68 16 112/65 (81) 98 Room Air 98.7 Labs Labs Laboratory Tests Test 05/12/20 01:25 05/12/20 02:02 05/12/20 08:17 05/12/20 11:44 Urine Collection Type Unknown Urine Color Yellow Urine Clarity Clear Urine pH 6.0 (<5.0-8.0) Urine Specific [place] >=1.030 (1.000-1.030) Urine Protein Negative mg/dL (NEG-TRACE) Urine Glucose (UA) Negative mg/dL (NEG) Urine Ketones (Stick) 40 mg/dL (NEG) Urine Blood Negative (NEG) Urine Nitrite Negative (NEG) Urine Bilirubin Negative (NEG) Urine Urobilinogen Dipstick 0.2 mg/dL (0.2 mg/dL) Urine Leukocyte Esterase Negative (NEG) Urine RBC 0 /HPF (0-2) Urine WBC Occ /HPF (0-4) Urine Squamous Epithelial Cells Few /LPF Urine Bacteria 0 /HPF (0-FEW) Urine Mucus Mod /LPF White Blood Count 8.6 x10^3/uL (4.0-11.0) Red Blood Count 4.92 x10^6/uL (4.30-5.70) Hemoglobin 14.5 g/dL (13.0-17.5) Hematocrit 42.1 % (39.0-53.0) Mean Corpuscular Volume 86 fL (79-100) Mean Corpuscular Hemoglobin 30 pg (25-35) Mean Corpuscular Hemoglobin Concent 35 g/dL (31-37) Red Cell Distribution Width 13.5 % (11.5-14.5) Platelet Count 252 x10^3/uL (140-400) Neutrophils (%) (Auto) 80 % (31-73) Lymphocytes (%) (Auto) 14 % (24-48) Monocytes (%) (Auto) 5 % (0-9) Eosinophils (%) (Auto) 1 % (0-3) Basophils (%) (Auto) 0 % (0-3) Neutrophils # (Auto) 6.9 x10^3/uL (1.8-7.7) Lymphocytes # (Auto) 1.2 x10^3/uL (1.0-4.8) Monocytes # (Auto) 0.4 x10^3/uL (0.0-1.1) Eosinophils # (Auto) 0.1 x10^3/uL (0.0-0.7) Basophils # (Auto) 0.0 x10^3/uL (0.0-0.2) Sodium Level 137 mmol/L (136-145) Potassium Level 3.9 mmol/L (3.5-5.1) Chloride Level 102 mmol/L (98-107) Carbon Dioxide Level 25 mmol/L (21-32) Anion Gap 10 (6-14) Blood Urea Nitrogen 12 mg/dL (8-26) Creatinine 0.9 mg/dL (0.7-1.3) Estimated GFR (Cockcroft-Gault) 91.3 BUN/Creatinine Ratio 13 (6-20) Glucose Level 174 mg/dL (70-99) Calcium Level 9.0 mg/dL (8.5-10.1) Total Bilirubin 0.6 mg/dL (0.2-1.0) Aspartate Amino Transf (AST/SGOT) 80 U/L (15-37) Alanine Aminotransferase (ALT/SGPT) 134 U/L (16-63) Alkaline Phosphatase 93 U/L (46-116) Total Protein 7.5 g/dL (6.4-8.2) Albumin 3.9 g/dL (3.4-5.0) Albumin/Globulin Ratio 1.1 (1.0-1.7) Triglycerides Level 183 mg/dL (0-150) Lipase 835 U/L (73-393) Glucose (Fingerstick) 120 mg/dL (70-99) 103 mg/dL (70-99) Laboratory Tests Test 05/12/20 01:25 05/12/20 02:02 05/12/20 08:17 05/12/20 11:44 Urine Collection Type Unknown Urine Color Yellow Urine Clarity Clear Urine pH 6.0 (<5.0-8.0) Urine Specific [place] >=1.030 (1.000-1.030) Urine Protein Negative mg/dL (NEG-TRACE) Urine Glucose (UA) Negative mg/dL (NEG) Urine Ketones (Stick) 40 mg/dL (NEG) Urine Blood Negative (NEG) Urine Nitrite Negative (NEG) Urine Bilirubin Negative (NEG) Urine Urobilinogen Dipstick 0.2 mg/dL (0.2 mg/dL) Urine Leukocyte Esterase Negative (NEG) Urine RBC 0 /HPF (0-2) Urine WBC Occ /HPF (0-4) Urine Squamous Epithelial Cells Few /LPF Urine Bacteria 0 /HPF (0-FEW) Urine Mucus Mod /LPF White Blood Count 8.6 x10^3/uL (4.0-11.0) Red Blood Count 4.92 x10^6/uL (4.30-5.70) Hemoglobin 14.5 g/dL (13.0-17.5) Hematocrit 42.1 % (39.0-53.0) Mean Corpuscular Volume 86 fL (79-100) Mean Corpuscular Hemoglobin 30 pg (25-35) Mean Corpuscular Hemoglobin Concent 35 g/dL (31-37) Red Cell Distribution Width 13.5 % (11.5-14.5) Platelet Count 252 x10^3/uL (140-400) Neutrophils (%) (Auto) 80 % (31-73) Lymphocytes (%) (Auto) 14 % (24-48) Monocytes (%) (Auto) 5 % (0-9) Eosinophils (%) (Auto) 1 % (0-3) Basophils (%) (Auto) 0 % (0-3) Neutrophils # (Auto) 6.9 x10^3/uL (1.8-7.7) Lymphocytes # (Auto) 1.2 x10^3/uL (1.0-4.8) Monocytes # (Auto) 0.4 x10^3/uL (0.0-1.1) Eosinophils # (Auto) 0.1 x10^3/uL (0.0-0.7) Basophils # (Auto) 0.0 x10^3/uL (0.0-0.2) Sodium Level 137 mmol/L (136-145) Potassium Level 3.9 mmol/L (3.5-5.1) Chloride Level 102 mmol/L (98-107) Carbon Dioxide Level 25 mmol/L (21-32) Anion Gap 10 (6-14) Blood Urea Nitrogen 12 mg/dL (8-26) Creatinine 0.9 mg/dL (0.7-1.3) Estimated GFR (Cockcroft-Gault) 91.3 BUN/Creatinine Ratio 13 (6-20) Glucose Level 174 mg/dL (70-99) Calcium Level 9.0 mg/dL (8.5-10.1) Total Bilirubin 0.6 mg/dL (0.2-1.0) Aspartate Amino Transf (AST/SGOT) 80 U/L (15-37) Alanine Aminotransferase (ALT/SGPT) 134 U/L (16-63) Alkaline Phosphatase 93 U/L (46-116) Total Protein 7.5 g/dL (6.4-8.2) Albumin 3.9 g/dL (3.4-5.0) Albumin/Globulin Ratio 1.1 (1.0-1.7) Triglycerides Level 183 mg/dL (0-150) Lipase 835 U/L (73-393) Glucose (Fingerstick) 120 mg/dL (70-99) 103 mg/dL (70-99) Images Images CT scan consistent with cholelithiasis and cholecystitis. Small hiatal hernia. No other significant GI findings. Assessment/Plan Assessment/Plan Onset this week of upper abdominal pain which progressed and recurred. He has had some minor pain in the past but it always resolved without further work-up. His labs and imaging suggest that he has likely cholelithiasis and probably mild pancreatitis associated with passage of a common bile duct stone. He has elevation of his lipase to a modest extent and has very mild transaminase elevation with normal bilirubin and alkaline phosphatase and no evidence on imaging of significant biliary dilation. Supports passage of a gallstone as a trigger. Other possibilities of pancreatitis cannot be totally excluded but seem less likely based on his negative history. Other causes for his pain such as peptic ulcer disease etc. cannot be excluded but seem less likely based on this presentation. Cholelithiasis. He was not aware he had this diagnosis. His risk factor includes the 90 pound weight loss after gastric sleeve back in 2017. He is also a diabetic which increases his morbidity from cholelithiasis and possible cholecystitis as well. Plan: N.p.o. and IV fluids Monitor labs with expectations of improvement in lipase and liver function studies. Although likely to be negative, hepatitis C screen will be performed Surgery consultation GORGE SOLARES MD May 12, 2020 15:06
--- NOTE | 2020-05-12 16:22 | PDOC2 ---
CONSULT Date of Consult Date of Consult DATE: 05/12/20 TIME: 16:20 Reason for Consult Reason for Consult: gallstone pancreatitis Referring Physician Referring Physician: Dr. Live Identification/Chief Complaint Chief Complaint epigastric abd pain Source Source: Chart review, Patient History of Present Illness Reason for Visit: 44 yo M with c/o epigastric abd pain last few days. Worsened last night prompting admission. Feels better today. Previous gastric sleeve by Dr. Lu with 90 lbs weight loss. Past Medical History Endocrine: Diabetes, Other (Obesity) Past Surgical History Past Surgical History: Appendectomy, Other (Gastric sleeve, multiple cyst removal) Family History Family History: No Significant Social History No ALCOHOL: occassional Drugs: None Current Problem List Problem List Problems Medical Problems: (1) Pancreatitis Status: Acute Current Medications Current Medications Current Medications Ondansetron HCl (Zofran) 4 mg 1X ONCE IVP Last administered on 05/12/20at 02:22; Start 05/12/20 at 02:00; Stop 05/12/20 at 02:02; Status DC Morphine Sulfate (Morphine Sulfate) 5 mg 1X ONCE IV Last administered on 05/12/20at 02:25; Start 05/12/20 at 02:00; Stop 05/12/20 at 02:02; Status DC Iohexol (Omnipaque 240 Mg/ml) 30 ml 1X ONCE PO Last administered on 05/12/20at 02:20; Start 05/12/20 at 02:15; Stop 05/12/20 at 02:16; Status DC Iohexol (Omnipaque 300 Mg/ml) 75 ml 1X ONCE IV Last administered on 05/12/20at 03:45; Start 05/12/20 at 02:15; Stop 05/12/20 at 02:16; Status DC Info (CONTRAST GIVEN -- Rx MONITORING) 1 each PRN DAILY PRN MC SEE COMMENTS; Start 05/12/20 at 02:15; Stop 05/14/20 at 02:14 Morphine Sulfate (Morphine Sulfate) 2 mg PRN Q2HR PRN IV PAIN; Start 05/12/20 at 05:30; Stop 05/12/20 at 08:11; Status DC Sodium Chloride 1,000 ml @ 125 mls/hr Q8H IV Last administered on 05/12/20at 13:18; Start 05/12/20 at 05:30; Stop 05/13/20 at 05:29 Morphine Sulfate (Morphine Sulfate) 5 mg 1X ONCE IV Last administered on 05/12/20at 05:56; Start 05/12/20 at 05:30; Stop 05/12/20 at 05:31; Status DC Hydromorphone HCl (Dilaudid) 2 mg PRN Q4HRS PRN IVP PAIN; Start 05/12/20 at 08:00 Fentanyl Citrate (Fentanyl 2ml Vial) 50 mcg PRN Q2HR PRN IVP PAIN; Start 05/12/20 at 08:00 Ondansetron HCl (Zofran) 4 mg PRN Q6HRS PRN IVP NAUSEA/VOMITING; Start 05/12/20 at 08:00 Prochlorperazine Edisylate (Compazine) 10 mg PRN Q6HRS PRN IVP NAUSEA/VOMITING; Start 05/12/20 at 08:00 Al Hydroxide/Mg Hydroxide (Mylanta Plus Xs) 30 ml PRN Q3HRS PRN PO HEARTBURN / GAS; Start 05/12/20 at 08:00 Calcium Carbonate/ Glycine (Tums) 500 mg PRN Q3HRS PRN PO UPSET STOMACH; Start 05/12/20 at 08:00 Zolpidem Tartrate (Ambien) 5 mg PRN QHS PRN PO INSOMNIA, MAY REPEAT IN 1HR; Start 05/12/20 at 08:00 Acetaminophen (Tylenol) 650 mg PRN Q6HRS PRN PO Headaches, Temp > 101.5F; Start 05/12/20 at 08:00 Magnesium Hydroxide (Milk Of Magnesia) 2,400 mg PRN Q12HR PRN PO CONSTIPATION; Start 05/12/20 at 08:00 Bisacodyl (Dulcolax Supp) 10 mg PRN DAILY PRN VT CONSTIPATION; Start 05/12/20 at 08:00 Heparin Sodium (Porcine) (Heparin Sodium) 5,000 unit Q8HRS SQ ; Start 05/12/20 at 14:00 Insulin Human Lispro (HumaLOG) 0-7 UNITS TIDWMEALS SQ ; Start 05/12/20 at 12:00 Dextrose (Dextrose 50%-Water Syringe) 12.5 gm PRN Q15MIN PRN IV SEE COMMENTS; Start 1/9/21 at 08:15 Active Scripts Active Reported Probiotic (Lactobacillus Acidophilus) 1 Each Capsule 1 Each PO BID Fish Oil 1,000 Mg Capsule ([place]-3 Fatty Acids/Fish Oil) 1 Each Capsule 1 Each PO BID Calcium + Vitamin D Tablet (Calcium Carbonate/Vitamin D3) 1 Each Tablet 1 Each PO BID Metformin Hcl 500 Mg Tablet 500 Mg PO BIDWMEALS No Known Medications Prior To Admisstion (Info) Each 1 Each MC 1X Allergies Allergies: Coded Allergies: No Known Drug Allergies (Unverified , 01/30/19) ROS Gastrointestinal: Yes Abdominal Pain Physical Exam General: Alert, Oriented X3, Cooperative, No acute distress HEENT: Atraumatic Lungs: Normal air movement Abdomen: Soft, No tenderness Extremities: No clubbing, No cyanosis Skin: No rashes, No breakdown Neuro: Normal speech, Sensation intact Psych/Mental Status: Mental status NL, Mood NL Vitals VITALS Vital Signs Date Time Temp Pulse Resp B/P (MAP) Pulse Ox O2 Delivery O2 Flow Rate FiO2 05/12/20 14:58 98.1 74 16 110/61 (77) 95 Room Air 98.1 Labs Labs Laboratory Tests Test 05/12/20 01:25 05/12/20 02:02 05/12/20 08:17 05/12/20 11:44 Urine Collection Type Unknown Urine Color Yellow Urine Clarity Clear Urine pH 6.0 (<5.0-8.0) Urine Specific [place] >=1.030 (1.000-1.030) Urine Protein Negative mg/dL (NEG-TRACE) Urine Glucose (UA) Negative mg/dL (NEG) Urine Ketones (Stick) 40 mg/dL (NEG) Urine Blood Negative (NEG) Urine Nitrite Negative (NEG) Urine Bilirubin Negative (NEG) Urine Urobilinogen Dipstick 0.2 mg/dL (0.2 mg/dL) Urine Leukocyte Esterase Negative (NEG) Urine RBC 0 /HPF (0-2) Urine WBC Occ /HPF (0-4) Urine Squamous Epithelial Cells Few /LPF Urine Bacteria 0 /HPF (0-FEW) Urine Mucus Mod /LPF White Blood Count 8.6 x10^3/uL (4.0-11.0) Red Blood Count 4.92 x10^6/uL (4.30-5.70) Hemoglobin 14.5 g/dL (13.0-17.5) Hematocrit 42.1 % (39.0-53.0) Mean Corpuscular Volume 86 fL (79-100) Mean Corpuscular Hemoglobin 30 pg (25-35) Mean Corpuscular Hemoglobin Concent 35 g/dL (31-37) Red Cell Distribution Width 13.5 % (11.5-14.5) Platelet Count 252 x10^3/uL (140-400) Neutrophils (%) (Auto) 80 % (31-73) Lymphocytes (%) (Auto) 14 % (24-48) Monocytes (%) (Auto) 5 % (0-9) Eosinophils (%) (Auto) 1 % (0-3) Basophils (%) (Auto) 0 % (0-3) Neutrophils # (Auto) 6.9 x10^3/uL (1.8-7.7) Lymphocytes # (Auto) 1.2 x10^3/uL (1.0-4.8) Monocytes # (Auto) 0.4 x10^3/uL (0.0-1.1) Eosinophils # (Auto) 0.1 x10^3/uL (0.0-0.7) Basophils # (Auto) 0.0 x10^3/uL (0.0-0.2) Sodium Level 137 mmol/L (136-145) Potassium Level 3.9 mmol/L (3.5-5.1) Chloride Level 102 mmol/L (98-107) Carbon Dioxide Level 25 mmol/L (21-32) Anion Gap 10 (6-14) Blood Urea Nitrogen 12 mg/dL (8-26) Creatinine 0.9 mg/dL (0.7-1.3) Estimated GFR (Cockcroft-Gault) 91.3 BUN/Creatinine Ratio 13 (6-20) Glucose Level 174 mg/dL (70-99) Calcium Level 9.0 mg/dL (8.5-10.1) Total Bilirubin 0.6 mg/dL (0.2-1.0) Aspartate Amino Transf (AST/SGOT) 80 U/L (15-37) Alanine Aminotransferase (ALT/SGPT) 134 U/L (16-63) Alkaline Phosphatase 93 U/L (46-116) Total Protein 7.5 g/dL (6.4-8.2) Albumin 3.9 g/dL (3.4-5.0) Albumin/Globulin Ratio 1.1 (1.0-1.7) Triglycerides Level 183 mg/dL (0-150) Lipase 835 U/L (73-393) Glucose (Fingerstick) 120 mg/dL (70-99) 103 mg/dL (70-99) Laboratory Tests Test 05/12/20 01:25 05/12/20 02:02 05/12/20 08:17 05/12/20 11:44 Urine Collection Type Unknown Urine Color Yellow Urine Clarity Clear Urine pH 6.0 (<5.0-8.0) Urine Specific [place] >=1.030 (1.000-1.030) Urine Protein Negative mg/dL (NEG-TRACE) Urine Glucose (UA) Negative mg/dL (NEG) Urine Ketones (Stick) 40 mg/dL (NEG) Urine Blood Negative (NEG) Urine Nitrite Negative (NEG) Urine Bilirubin Negative (NEG) Urine Urobilinogen Dipstick 0.2 mg/dL (0.2 mg/dL) Urine Leukocyte Esterase Negative (NEG) Urine RBC 0 /HPF (0-2) Urine WBC Occ /HPF (0-4) Urine Squamous Epithelial Cells Few /LPF Urine Bacteria 0 /HPF (0-FEW) Urine Mucus Mod /LPF White Blood Count 8.6 x10^3/uL (4.0-11.0) Red Blood Count 4.92 x10^6/uL (4.30-5.70) Hemoglobin 14.5 g/dL (13.0-17.5) Hematocrit 42.1 % (39.0-53.0) Mean Corpuscular Volume 86 fL (79-100) Mean Corpuscular Hemoglobin 30 pg (25-35) Mean Corpuscular Hemoglobin Concent 35 g/dL (31-37) Red Cell Distribution Width 13.5 % (11.5-14.5) Platelet Count 252 x10^3/uL (140-400) Neutrophils (%) (Auto) 80 % (31-73) Lymphocytes (%) (Auto) 14 % (24-48) Monocytes (%) (Auto) 5 % (0-9) Eosinophils (%) (Auto) 1 % (0-3) Basophils (%) (Auto) 0 % (0-3) Neutrophils # (Auto) 6.9 x10^3/uL (1.8-7.7) Lymphocytes # (Auto) 1.2 x10^3/uL (1.0-4.8) Monocytes # (Auto) 0.4 x10^3/uL (0.0-1.1) Eosinophils # (Auto) 0.1 x10^3/uL (0.0-0.7) Basophils # (Auto) 0.0 x10^3/uL (0.0-0.2) Sodium Level 137 mmol/L (136-145) Potassium Level 3.9 mmol/L (3.5-5.1) Chloride Level 102 mmol/L (98-107) Carbon Dioxide Level 25 mmol/L (21-32) Anion Gap 10 (6-14) Blood Urea Nitrogen 12 mg/dL (8-26) Creatinine 0.9 mg/dL (0.7-1.3) Estimated GFR (Cockcroft-Gault) 91.3 BUN/Creatinine Ratio 13 (6-20) Glucose Level 174 mg/dL (70-99) Calcium Level 9.0 mg/dL (8.5-10.1) Total Bilirubin 0.6 mg/dL (0.2-1.0) Aspartate Amino Transf (AST/SGOT) 80 U/L (15-37) Alanine Aminotransferase (ALT/SGPT) 134 U/L (16-63) Alkaline Phosphatase 93 U/L (46-116) Total Protein 7.5 g/dL (6.4-8.2) Albumin 3.9 g/dL (3.4-5.0) Albumin/Globulin Ratio 1.1 (1.0-1.7) Triglycerides Level 183 mg/dL (0-150) Lipase 835 U/L (73-393) Glucose (Fingerstick) 120 mg/dL (70-99) 103 mg/dL (70-99) Images Images CT wnl US c/w calculous cholecystitis Assessment/Plan Assessment/Plan Gallstone pancreatitis agree with bowel rest and supportive care will plan cholecystectomy prior to d/c, once pancreatitis improved. Thanks for consult! BRIONNA CM MD May 12, 2020 16:22
[2020-05-12] MEDS: HEPARIN for SUB-Q USE 5,000 UNIT/ML VIAL. SQ SCH ×2 (17:02→22:13)
[2020-05-12] MEDS: ACETAMINOPHEN 325 MG TABLET. PO PRN (17:26)
[2020-05-12 19:10] VITALS: BP 106/62
[2020-05-12 23:16] VITALS: BP 106/55
[2020-05-13 03:25] VITALS: BP 106/60
[2020-05-13] MEDS: HEPARIN for SUB-Q USE 5,000 UNIT/ML VIAL. SQ SCH ×3 (06:48→22:54)
[2020-05-13 07:00] VITALS: BP 116/65
[2020-05-13] MEDS: INSULIN LISPRO 300 UNITS/3 ML VIAL. SQ SCH ×3 (07:41→17:00)
[2020-05-13] MEDS: ACETAMINOPHEN 325 MG TABLET. PO PRN (08:27)
[2020-05-13 08:30] LABS: BASO % 1 % (0-3); EOS # 0.2 x10^3/uL (0.0-0.7); EOS % 4 % (0-3); HEMATOCRIT 37.9 % (39.0-53.0); HEMOGLOBIN 13.2 g/dL (13.0-17.5); LYMPH # 1.5 x10^3/uL (1.0-4.8); LYMPH % 25 % (24-48); MEAN CORPUSCULAR HEMOGLOBIN 30 pg (25-35); MEAN CORPUSCULAR HGB CONC 35 g/dL (31-37); MEAN CORPUSCULAR VOLUME 85 fL (79-100); MONO # 0.4 x10^3/uL (0.0-1.1); MONO % 7 % (0-9); NEUT # 3.8 x10^3/uL (1.8-7.7); NEUT % 64 % (31-73); PLATELET COUNT 217 x10^3/uL (140-400); RED BLOOD COUNT 4.43 x10^6/uL (4.30-5.70); RED CELL DISTRIBUTION WIDTH 13.5 % (11.5-14.5); WHITE BLOOD COUNT 5.9 x10^3/uL (4.0-11.0)
[2020-05-13 08:41] LABS: CALCIUM 8.3 mg/dL (8.5-10.1); CREATININE 0.7 mg/dL (0.7-1.3); POTASSIUM 3.8 mmol/L (3.5-5.1)
[2020-05-13 08:49] LABS: ALBUMIN 3.1 g/dL (3.4-5.0); DIRECT BILIRUBIN 0.2 mg/dL (0.0-0.2); TOTAL BILIRUBIN 0.9 mg/dL (0.2-1.0); TOTAL PROTEIN 6.2 g/dL (6.4-8.2)
[2020-05-13 10:52] VITALS: BP 122/69
--- NOTE | 2020-05-13 13:02 | PDOC ---
[facility] PROGRESS NOTE Date of Service DOS: DATE: 05/13/20 TIME: 12:57 Chief Complaint Chief Complaint Assessment/Plan Gallstone pancreatitis Transaminitis DM2 Plan: Admit patient with GI and general surgery consultations N.p.o. with IV fluids Pain management with fentanyl, dilaudid IV Zofran as needed MDSS insulin FEN - NPO PPX - Heparin FULL CODE Dispo - inpatient for above History of Present Illness History of Present Illness Patient is a 44-year-old male who presents to the ER with complaints of worsening epigastric pain. He has had intermittent stabbing pain for the past week, 12/11. His pain was only resolved spontaneously, but he came to the ER when his pain persisted. He reports some associated nausea, but denies any vomiting, diarrhea, or fever. CT abdomen/pelvis and ultrasound obtained in ER showing dilated gallbladder with thickened wall and gallstones, concerning for cholecystitis. Will admit patient for further medical management. 05/13: Patient seen and evaluated bedside. He is feeling much better, but still having some and right upper quadrant tenderness, worse with deep inspiration. Denies nausea, vomiting, or chest pain. Per GI, keep n.p.o. and continue IV fluids. Monitor for improvement of lipase and LFTs. Per general surgery, plan for cholecystectomy once pancreatitis improves, likely tomorrow. Discussed with RN. Vitals/I&O Vitals/I&O: Vital Signs Date Time Temp Pulse Resp B/P (MAP) Pulse Ox O2 Delivery O2 Flow Rate FiO2 05/13/20 10:52 98.5 74 18 122/69 (86) 96 Room Air 98.5 I & O 05/12/20 05/12/20 05/13/20 14:55 22:55 06:55 Intake Total 1000 ml 1000 ml 0 ml Output Total 600 ml 400 ml 200 ml Balance 400 ml 600 ml -200 ml Physical Exam General: Alert, Oriented X3, Cooperative, No acute distress Heart: Regular rate, Normal S1, Normal S2 Lungs: Clear Abdomen: Soft, No tenderness Extremities: No clubbing, No cyanosis Skin: No rashes, No breakdown Labs Labs: Laboratory Tests Test 05/12/20 16:34 05/12/20 20:50 05/13/20 07:37 05/13/20 07:49 Glucose (Fingerstick) 120 mg/dL (70-99) 116 mg/dL (70-99) 128 mg/dL (70-99) White Blood Count 5.9 x10^3/uL (4.0-11.0) Red Blood Count 4.43 x10^6/uL (4.30-5.70) Hemoglobin 13.2 g/dL (13.0-17.5) Hematocrit 37.9 % (39.0-53.0) Mean Corpuscular Volume 85 fL (79-100) Mean Corpuscular Hemoglobin 30 pg (25-35) Mean Corpuscular Hemoglobin Concent 35 g/dL (31-37) Red Cell Distribution Width 13.5 % (11.5-14.5) Platelet Count 217 x10^3/uL (140-400) Neutrophils (%) (Auto) 64 % (31-73) Lymphocytes (%) (Auto) 25 % (24-48) Monocytes (%) (Auto) 7 % (0-9) Eosinophils (%) (Auto) 4 % (0-3) Basophils (%) (Auto) 1 % (0-3) Neutrophils # (Auto) 3.8 x10^3/uL (1.8-7.7) Lymphocytes # (Auto) 1.5 x10^3/uL (1.0-4.8) Monocytes # (Auto) 0.4 x10^3/uL (0.0-1.1) Eosinophils # (Auto) 0.2 x10^3/uL (0.0-0.7) Basophils # (Auto) 0.0 x10^3/uL (0.0-0.2) Sodium Level 141 mmol/L (136-145) Potassium Level 3.8 mmol/L (3.5-5.1) Chloride Level 104 mmol/L (98-107) Carbon Dioxide Level 25 mmol/L (21-32) Anion Gap 12 (6-14) Blood Urea Nitrogen 7 mg/dL (8-26) Creatinine 0.7 mg/dL (0.7-1.3) Estimated GFR (Cockcroft-Gault) 122.0 Glucose Level 113 mg/dL (70-99) Calcium Level 8.3 mg/dL (8.5-10.1) Total Bilirubin 0.9 mg/dL (0.2-1.0) Direct Bilirubin 0.2 mg/dL (0.0-0.2) Aspartate Amino Transf (AST/SGOT) 23 U/L (15-37) Alanine Aminotransferase (ALT/SGPT) 70 U/L (16-63) Alkaline Phosphatase 73 U/L (46-116) Total Protein 6.2 g/dL (6.4-8.2) Albumin 3.1 g/dL (3.4-5.0) Lipase 347 U/L (73-393) Assessment and Plan Assessmemt and Plan Problems Medical Problems: (1) Pancreatitis Status: Acute Comment Review of Relevant I have reviewed the following items marc (where applicable) has been applied. Medications: Current Medications Medications (Trade) Dose Ordered Sig/Gasper Route PRN Reason Start Time Stop Time Status Last Admin Dose Admin Heparin Sodium (Porcine) (Heparin Sodium) 5,000 unit Q8HRS SQ 05/12/20 14:00 05/13/20 06:48 Justifications for Admission Other Justification Gallstone pancreatitis JEAN CLAUDE CEDEÑO MD May 13, 2020 13:02
[2020-05-13 15:00] VITALS: BP 115/66
--- NOTE | 2020-05-13 15:02 | PDOC ---
GI PROGRESS NOTES Date of Service: Date/Time DATE: 05/13/20 TIME: 15:00 Subjective Subjective improved- still with sore RUQ but less painful overall labs have improved Objective Vitals Vital Signs Date Time Temp Pulse Resp B/P (MAP) Pulse Ox O2 Delivery O2 Flow Rate FiO2 05/13/20 10:52 98.5 74 18 122/69 (86) 96 Room Air 98.5 05/13/20 08:05 Room Air 05/13/20 07:00 99.4 74 16 116/65 (82) 94 Room Air 99.4 05/13/20 03:25 98.7 72 20 106/60 (75) 95 Room Air 98.7 05/12/20 23:16 98.2 65 20 106/55 (72) 96 Room Air 98.2 05/12/20 20:00 Room Air 05/12/20 19:10 98.8 68 20 106/62 (77) 93 Room Air 98.8 Labs Labs Laboratory Tests Test 05/12/20 16:34 05/12/20 20:50 05/13/20 07:37 05/13/20 07:49 Glucose (Fingerstick) 120 mg/dL (70-99) 116 mg/dL (70-99) 128 mg/dL (70-99) White Blood Count 5.9 x10^3/uL (4.0-11.0) Red Blood Count 4.43 x10^6/uL (4.30-5.70) Hemoglobin 13.2 g/dL (13.0-17.5) Hematocrit 37.9 % (39.0-53.0) Mean Corpuscular Volume 85 fL (79-100) Mean Corpuscular Hemoglobin 30 pg (25-35) Mean Corpuscular Hemoglobin Concent 35 g/dL (31-37) Red Cell Distribution Width 13.5 % (11.5-14.5) Platelet Count 217 x10^3/uL (140-400) Neutrophils (%) (Auto) 64 % (31-73) Lymphocytes (%) (Auto) 25 % (24-48) Monocytes (%) (Auto) 7 % (0-9) Eosinophils (%) (Auto) 4 % (0-3) Basophils (%) (Auto) 1 % (0-3) Neutrophils # (Auto) 3.8 x10^3/uL (1.8-7.7) Lymphocytes # (Auto) 1.5 x10^3/uL (1.0-4.8) Monocytes # (Auto) 0.4 x10^3/uL (0.0-1.1) Eosinophils # (Auto) 0.2 x10^3/uL (0.0-0.7) Basophils # (Auto) 0.0 x10^3/uL (0.0-0.2) Sodium Level 141 mmol/L (136-145) Potassium Level 3.8 mmol/L (3.5-5.1) Chloride Level 104 mmol/L (98-107) Carbon Dioxide Level 25 mmol/L (21-32) Anion Gap 12 (6-14) Blood Urea Nitrogen 7 mg/dL (8-26) Creatinine 0.7 mg/dL (0.7-1.3) Estimated GFR (Cockcroft-Gault) 122.0 Glucose Level 113 mg/dL (70-99) Calcium Level 8.3 mg/dL (8.5-10.1) Total Bilirubin 0.9 mg/dL (0.2-1.0) Direct Bilirubin 0.2 mg/dL (0.0-0.2) Aspartate Amino Transf (AST/SGOT) 23 U/L (15-37) Alanine Aminotransferase (ALT/SGPT) 70 U/L (16-63) Alkaline Phosphatase 73 U/L (46-116) Total Protein 6.2 g/dL (6.4-8.2) Albumin 3.1 g/dL (3.4-5.0) Lipase 347 U/L (73-393) Physical Exam Physical Exam chest- clear abd- soft mildly tender RUQ- otherwise non tender, normal bowel sounds Assessment Assessment resolving pancreatitis- likely post CBD stone passage Cholelithasis with likely cholecystitis Plan Plan continue NPO defer surgery plans to Dr. Zuñiga Justicifation of Admission Dx: Justifications for Admission: Justification of Admission Dx: Yes GORGE SOLARES MD May 13, 2020 15:02
--- NOTE | 2020-05-13 15:29 | PDOC ---
SURGICAL PROGRESS NOTE DATE: 05/13/20 TIME: 15:27 Subjective Pt feels better, pain improved, no N/V, min RUQ pain Vital Signs Vital Signs Date Time Temp Pulse Resp B/P (MAP) Pulse Ox O2 Delivery O2 Flow Rate FiO2 05/13/20 15:00 98.7 65 16 115/66 (82) 96 Room Air 98.7 I&O Intake and Output 05/13/20 07:00 Intake Total 2000 ml Output Total 1200 ml Balance 800 ml Intake Oral 0 ml IV Total 2000 ml Output Urine Total 1200 ml General: Alert, Oriented X3, Cooperative, No acute distress Abdomen: Soft, Other (min TTP RUQ) Labs Laboratory Tests Test 05/12/20 01:25 05/12/20 02:02 05/12/20 08:17 05/12/20 11:44 Urine Collection Type Unknown Urine Color Yellow Urine Clarity Clear Urine pH 6.0 (<5.0-8.0) Urine Specific [place] >=1.030 (1.000-1.030) Urine Protein Negative mg/dL (NEG-TRACE) Urine Glucose (UA) Negative mg/dL (NEG) Urine Ketones (Stick) 40 mg/dL (NEG) Urine Blood Negative (NEG) Urine Nitrite Negative (NEG) Urine Bilirubin Negative (NEG) Urine Urobilinogen Dipstick 0.2 mg/dL (0.2 mg/dL) Urine Leukocyte Esterase Negative (NEG) Urine RBC 0 /HPF (0-2) Urine WBC Occ /HPF (0-4) Urine Squamous Epithelial Cells Few /LPF Urine Bacteria 0 /HPF (0-FEW) Urine Mucus Mod /LPF White Blood Count 8.6 x10^3/uL (4.0-11.0) Red Blood Count 4.92 x10^6/uL (4.30-5.70) Hemoglobin 14.5 g/dL (13.0-17.5) Hematocrit 42.1 % (39.0-53.0) Mean Corpuscular Volume 86 fL (79-100) Mean Corpuscular Hemoglobin 30 pg (25-35) Mean Corpuscular Hemoglobin Concent 35 g/dL (31-37) Red Cell Distribution Width 13.5 % (11.5-14.5) Platelet Count 252 x10^3/uL (140-400) Neutrophils (%) (Auto) 80 % (31-73) Lymphocytes (%) (Auto) 14 % (24-48) Monocytes (%) (Auto) 5 % (0-9) Eosinophils (%) (Auto) 1 % (0-3) Basophils (%) (Auto) 0 % (0-3) Neutrophils # (Auto) 6.9 x10^3/uL (1.8-7.7) Lymphocytes # (Auto) 1.2 x10^3/uL (1.0-4.8) Monocytes # (Auto) 0.4 x10^3/uL (0.0-1.1) Eosinophils # (Auto) 0.1 x10^3/uL (0.0-0.7) Basophils # (Auto) 0.0 x10^3/uL (0.0-0.2) Sodium Level 137 mmol/L (136-145) Potassium Level 3.9 mmol/L (3.5-5.1) Chloride Level 102 mmol/L (98-107) Carbon Dioxide Level 25 mmol/L (21-32) Anion Gap 10 (6-14) Blood Urea Nitrogen 12 mg/dL (8-26) Creatinine 0.9 mg/dL (0.7-1.3) Estimated GFR (Cockcroft-Gault) 91.3 BUN/Creatinine Ratio 13 (6-20) Glucose Level 174 mg/dL (70-99) Calcium Level 9.0 mg/dL (8.5-10.1) Total Bilirubin 0.6 mg/dL (0.2-1.0) Aspartate Amino Transf (AST/SGOT) 80 U/L (15-37) Alanine Aminotransferase (ALT/SGPT) 134 U/L (16-63) Alkaline Phosphatase 93 U/L (46-116) Total Protein 7.5 g/dL (6.4-8.2) Albumin 3.9 g/dL (3.4-5.0) Albumin/Globulin Ratio 1.1 (1.0-1.7) Triglycerides Level 183 mg/dL (0-150) Lipase 835 U/L (73-393) Glucose (Fingerstick) 120 mg/dL (70-99) 103 mg/dL (70-99) Test 05/12/20 16:34 05/12/20 20:50 05/13/20 07:37 05/13/20 07:49 Glucose (Fingerstick) 120 mg/dL (70-99) 116 mg/dL (70-99) 128 mg/dL (70-99) White Blood Count 5.9 x10^3/uL (4.0-11.0) Red Blood Count 4.43 x10^6/uL (4.30-5.70) Hemoglobin 13.2 g/dL (13.0-17.5) Hematocrit 37.9 % (39.0-53.0) Mean Corpuscular Volume 85 fL (79-100) Mean Corpuscular Hemoglobin 30 pg (25-35) Mean Corpuscular Hemoglobin Concent 35 g/dL (31-37) Red Cell Distribution Width 13.5 % (11.5-14.5) Platelet Count 217 x10^3/uL (140-400) Neutrophils (%) (Auto) 64 % (31-73) Lymphocytes (%) (Auto) 25 % (24-48) Monocytes (%) (Auto) 7 % (0-9) Eosinophils (%) (Auto) 4 % (0-3) Basophils (%) (Auto) 1 % (0-3) Neutrophils # (Auto) 3.8 x10^3/uL (1.8-7.7) Lymphocytes # (Auto) 1.5 x10^3/uL (1.0-4.8) Monocytes # (Auto) 0.4 x10^3/uL (0.0-1.1) Eosinophils # (Auto) 0.2 x10^3/uL (0.0-0.7) Basophils # (Auto) 0.0 x10^3/uL (0.0-0.2) Sodium Level 141 mmol/L (136-145) Potassium Level 3.8 mmol/L (3.5-5.1) Chloride Level 104 mmol/L (98-107) Carbon Dioxide Level 25 mmol/L (21-32) Anion Gap 12 (6-14) Blood Urea Nitrogen 7 mg/dL (8-26) Creatinine 0.7 mg/dL (0.7-1.3) Estimated GFR (Cockcroft-Gault) 122.0 Glucose Level 113 mg/dL (70-99) Calcium Level 8.3 mg/dL (8.5-10.1) Total Bilirubin 0.9 mg/dL (0.2-1.0) Direct Bilirubin 0.2 mg/dL (0.0-0.2) Aspartate Amino Transf (AST/SGOT) 23 U/L (15-37) Alanine Aminotransferase (ALT/SGPT) 70 U/L (16-63) Alkaline Phosphatase 73 U/L (46-116) Total Protein 6.2 g/dL (6.4-8.2) Albumin 3.1 g/dL (3.4-5.0) Lipase 347 U/L (73-393) Laboratory Tests Test 05/12/20 16:34 05/12/20 20:50 05/13/20 07:37 05/13/20 07:49 Glucose (Fingerstick) 120 mg/dL (70-99) 116 mg/dL (70-99) 128 mg/dL (70-99) White Blood Count 5.9 x10^3/uL (4.0-11.0) Red Blood Count 4.43 x10^6/uL (4.30-5.70) Hemoglobin 13.2 g/dL (13.0-17.5) Hematocrit 37.9 % (39.0-53.0) Mean Corpuscular Volume 85 fL (79-100) Mean Corpuscular Hemoglobin 30 pg (25-35) Mean Corpuscular Hemoglobin Concent 35 g/dL (31-37) Red Cell Distribution Width 13.5 % (11.5-14.5) Platelet Count 217 x10^3/uL (140-400) Neutrophils (%) (Auto) 64 % (31-73) Lymphocytes (%) (Auto) 25 % (24-48) Monocytes (%) (Auto) 7 % (0-9) Eosinophils (%) (Auto) 4 % (0-3) Basophils (%) (Auto) 1 % (0-3) Neutrophils # (Auto) 3.8 x10^3/uL (1.8-7.7) Lymphocytes # (Auto) 1.5 x10^3/uL (1.0-4.8) Monocytes # (Auto) 0.4 x10^3/uL (0.0-1.1) Eosinophils # (Auto) 0.2 x10^3/uL (0.0-0.7) Basophils # (Auto) 0.0 x10^3/uL (0.0-0.2) Sodium Level 141 mmol/L (136-145) Potassium Level 3.8 mmol/L (3.5-5.1) Chloride Level 104 mmol/L (98-107) Carbon Dioxide Level 25 mmol/L (21-32) Anion Gap 12 (6-14) Blood Urea Nitrogen 7 mg/dL (8-26) Creatinine 0.7 mg/dL (0.7-1.3) Estimated GFR (Cockcroft-Gault) 122.0 Glucose Level 113 mg/dL (70-99) Calcium Level 8.3 mg/dL (8.5-10.1) Total Bilirubin 0.9 mg/dL (0.2-1.0) Direct Bilirubin 0.2 mg/dL (0.0-0.2) Aspartate Amino Transf (AST/SGOT) 23 U/L (15-37) Alanine Aminotransferase (ALT/SGPT) 70 U/L (16-63) Alkaline Phosphatase 73 U/L (46-116) Total Protein 6.2 g/dL (6.4-8.2) Albumin 3.1 g/dL (3.4-5.0) Lipase 347 U/L (73-393) Problem List Problems Medical Problems: (1) Pancreatitis Status: Acute Assessment/Plan gallstone pancreatitis appears improved plan cholecystectomy in AM. R/R/B/A d/w pt and pt's family. Justicifation of Admission Dx: Justifications for Admission: Justification of Admission Dx: Yes BRIONNA CM MD May 13, 2020 15:28
[2020-05-13] MEDS: IV NORMAL SALINE 1000ML BAG 1,000 ML IV SCH ×2 (17:00→21:07)
[2020-05-13 19:20] VITALS: BP 130/74
[2020-05-13 23:00] VITALS: BP 120/72
[2020-05-14] VITALS (9 sets, daily range): BP systolic 110–150; BP diastolic 57–84
[2020-05-14] MEDS: HEPARIN for SUB-Q USE 5,000 UNIT/ML VIAL. SQ SCH ×3 (05:52→23:31)
[2020-05-14] MEDS: IV NORMAL SALINE 1000ML BAG 1,000 ML IV SCH ×2 (05:52→18:31)
[2020-05-14 07:34] LABS: HEMOGLOBIN A1C 5.8 % (4.8-5.6)
[2020-05-14] MEDS: INSULIN LISPRO 300 UNITS/3 ML VIAL. SQ SCH ×3 (07:39→17:00)
--- NOTE | 2020-05-14 08:09 | PDOC ---
PROGRESS NOTES Date of Service: DATE: 05/14/20 TIME: 08:09 Chief Complaint Chief Complaint impression Gallstone pancreatitis Transaminitis DM2 Plan: Admit patient with GI and general surgery consultations N.p.o. with IV fluids Pain management with fentanyl, dilaudid IV Zofran as needed MDSS insulin FEN - NPO PPX - Heparin FULL CODE Dispo - inpatient for above plan for lap antonio 05-14 History of Present Illness History of Present Illness Patient is a 44-year-old male who presents to the ER with complaints of worsening epigastric pain. He has had intermittent stabbing pain for the past week, 12/11. His pain was only resolved spontaneously, but he came to the ER when his pain persisted. He reports some associated nausea, but denies any vomiting, diarrhea, or fever. CT abdomen/pelvis and ultrasound obtained in ER showing dilated gallbladder with thickened wall and gallstones, concerning for cholecystitis. Will admit patient for further medical management. 05/13: Patient seen and evaluated bedside. He is feeling much better, but still having some and right upper quadrant tenderness, worse with deep inspiration. Denies nausea, vomiting, or chest pain. Per GI, keep n.p.o. and continue IV fluids. Monitor for improvement of lipase and LFTs. Per general surgery, plan for cholecystectomy once pancreatitis improves, likely tomorrow. Discussed with RN. Vitals Vitals Vital Signs Date Time Temp Pulse Resp B/P (MAP) Pulse Ox O2 Delivery O2 Flow Rate FiO2 05/14/20 07:00 98.4 56 18 131/74 (93) 95 Room Air 98.4 Physical Exam General: Alert, Oriented X3, Cooperative, No acute distress Heart: Regular rate, Normal S1, Normal S2 Lungs: Clear Abdomen: Normal bowel sounds, Soft, Other Extremities: No clubbing, No cyanosis Skin: No rashes, No breakdown Labs LABS TATUS: ADM IN ORD. PHYSICIAN: AGATA MIRELES MD REASON: RUQ pain PROCEDURE: ABDOMEN LTD INDICATION : Reason: RUQ pain / Spl. Instructions: / History: COMPARISON: CT from earlier same day TECHNIQUE: Multiple ultrasound images obtained through the abdomen in grayscale and color. FINDINGS: Liver: Prominent in size and appears echogenic. Portions not well seen secondary to poor beam penetration. Gallbladder: Gallstones are seen. Dilated up to 13 cm. Wall is thickened. IVC: Partially distended at level of liver. Common Bile Duct: Upper limits of normal, 6 mm Pancreas: Obscured by bowel gas Right Kidney: No hydronephrosis. IMPRESSION: * Dilated gallbladder with thickened wall and gallstones. Would correlate with symptoms in the region since cholecystitis can have this appearance in the correct clinical context. Electronically signed by: Qing Mallory MD (05/12/2020 7:06 AM) [id number] DICTATED and SIGNED BY: QING MALLORY MD DATE: 05/12/20 [id number] Laboratory Tests Test 05/13/20 17:10 05/13/20 20:52 05/13/20 22:45 05/14/20 07:10 Glucose (Fingerstick) 111 mg/dL (70-99) 98 mg/dL (70-99) 93 mg/dL (70-99) SARS-CoV-2 Antigen (Rapid) Negative (NEGATIVE) Assessment and Plan Assessmemt and Plan Problems Medical Problems: (1) Pancreatitis Status: Acute Comment Review of Relevant I have reviewed the following items marc (where applicable) has been applied. Labs Laboratory Tests Test 05/12/20 08:17 05/12/20 11:44 05/12/20 16:34 05/12/20 20:50 Glucose (Fingerstick) 120 mg/dL (70-99) 103 mg/dL (70-99) 120 mg/dL (70-99) 116 mg/dL (70-99) Test 05/13/20 07:37 05/13/20 07:49 05/13/20 17:10 05/13/20 20:52 Glucose (Fingerstick) 128 mg/dL (70-99) 111 mg/dL (70-99) 98 mg/dL (70-99) White Blood Count 5.9 x10^3/uL (4.0-11.0) Red Blood Count 4.43 x10^6/uL (4.30-5.70) Hemoglobin 13.2 g/dL (13.0-17.5) Hematocrit 37.9 % (39.0-53.0) Mean Corpuscular Volume 85 fL (79-100) Mean Corpuscular Hemoglobin 30 pg (25-35) Mean Corpuscular Hemoglobin Concent 35 g/dL (31-37) Red Cell Distribution Width 13.5 % (11.5-14.5) Platelet Count 217 x10^3/uL (140-400) Neutrophils (%) (Auto) 64 % (31-73) Lymphocytes (%) (Auto) 25 % (24-48) Monocytes (%) (Auto) 7 % (0-9) Eosinophils (%) (Auto) 4 % (0-3) Basophils (%) (Auto) 1 % (0-3) Neutrophils # (Auto) 3.8 x10^3/uL (1.8-7.7) Lymphocytes # (Auto) 1.5 x10^3/uL (1.0-4.8) Monocytes # (Auto) 0.4 x10^3/uL (0.0-1.1) Eosinophils # (Auto) 0.2 x10^3/uL (0.0-0.7) Basophils # (Auto) 0.0 x10^3/uL (0.0-0.2) Sodium Level 141 mmol/L (136-145) Potassium Level 3.8 mmol/L (3.5-5.1) Chloride Level 104 mmol/L (98-107) Carbon Dioxide Level 25 mmol/L (21-32) Anion Gap 12 (6-14) Blood Urea Nitrogen 7 mg/dL (8-26) Creatinine 0.7 mg/dL (0.7-1.3) Estimated GFR (Cockcroft-Gault) 122.0 Glucose Level 113 mg/dL (70-99) Hemoglobin A1c 5.8 % (4.8-5.6) Calcium Level 8.3 mg/dL (8.5-10.1) Total Bilirubin 0.9 mg/dL (0.2-1.0) Direct Bilirubin 0.2 mg/dL (0.0-0.2) Aspartate Amino Transf (AST/SGOT) 23 U/L (15-37) Alanine Aminotransferase (ALT/SGPT) 70 U/L (16-63) Alkaline Phosphatase 73 U/L (46-116) Total Protein 6.2 g/dL (6.4-8.2) Albumin 3.1 g/dL (3.4-5.0) Lipase 347 U/L (73-393) Test 05/13/20 22:45 05/14/20 07:10 SARS-CoV-2 Antigen (Rapid) Negative (NEGATIVE) Glucose (Fingerstick) 93 mg/dL (70-99) Laboratory Tests Test 05/13/20 17:10 05/13/20 20:52 05/13/20 22:45 05/14/20 07:10 Glucose (Fingerstick) 111 mg/dL (70-99) 98 mg/dL (70-99) 93 mg/dL (70-99) SARS-CoV-2 Antigen (Rapid) Negative (NEGATIVE) Medications Current Medications Ondansetron HCl (Zofran) 4 mg 1X ONCE IVP Last administered on 05/12/20at 02:22; Start 05/12/20 at 02:00; Stop 05/12/20 at 02:02; Status DC Morphine Sulfate (Morphine Sulfate) 5 mg 1X ONCE IV Last administered on 05/12/20at 02:25; Start 05/12/20 at 02:00; Stop 05/12/20 at 02:02; Status DC Iohexol (Omnipaque 240 Mg/ml) 30 ml 1X ONCE PO Last administered on 05/12/20at 02:20; Start 05/12/20 at 02:15; Stop 05/12/20 at 02:16; Status DC Iohexol (Omnipaque 300 Mg/ml) 75 ml 1X ONCE IV Last administered on 05/12/20at 03:45; Start 05/12/20 at 02:15; Stop 05/12/20 at 02:16; Status DC Info (CONTRAST GIVEN -- Rx MONITORING) 1 each PRN DAILY PRN MC SEE COMMENTS; Start 05/12/20 at 02:15; Stop 05/14/20 at 02:14; Status DC Morphine Sulfate (Morphine Sulfate) 2 mg PRN Q2HR PRN IV PAIN; Start 05/12/20 at 05:30; Stop 05/12/20 at 08:11; Status DC Sodium Chloride 1,000 ml @ 125 mls/hr Q8H IV Last administered on 05/12/20at 22:04; Start 05/12/20 at 05:30; Stop 05/13/20 at 05:29; Status DC Morphine Sulfate (Morphine Sulfate) 5 mg 1X ONCE IV Last administered on 05/12/20at 05:56; Start 05/12/20 at 05:30; Stop 05/12/20 at 05:31; Status DC Hydromorphone HCl (Dilaudid) 2 mg PRN Q4HRS PRN IVP PAIN, 1st CHOICE; Start 05/12/20 at 08:00 Fentanyl Citrate (Fentanyl 2ml Vial) 50 mcg PRN Q2HR PRN IVP PAIN, 2nd CHOICE; Start 05/12/20 at 08:00 Ondansetron HCl (Zofran) 4 mg PRN Q6HRS PRN IVP NAUSEA/VOMITING, 1st CHOICE; Start 05/12/20 at 08:00 Prochlorperazine Edisylate (Compazine) 10 mg PRN Q6HRS PRN IVP NAUSEA/VOMITING, 2nd CHOICE; Start 05/12/20 at 08:00 Al Hydroxide/Mg Hydroxide (Mylanta Plus Xs) 30 ml PRN Q3HRS PRN PO HEARTBURN / GAS; Start 05/12/20 at 08:00 Calcium Carbonate/ Glycine (Tums) 500 mg PRN Q3HRS PRN PO UPSET STOMACH; Start 05/12/20 at 08:00 Zolpidem Tartrate (Ambien) 5 mg PRN QHS PRN PO INSOMNIA, MAY REPEAT IN 1HR Last administered on 05/12/20at 22:16; Start 05/12/20 at 08:00 Acetaminophen (Tylenol) 650 mg PRN Q6HRS PRN PO Headaches, Temp > 101.5F Last administered on 05/13/20at 08:27; Start 05/12/20 at 08:00 Magnesium Hydroxide (Milk Of Magnesia) 2,400 mg PRN Q12HR PRN PO CONSTIPATION; Start 05/12/20 at 08:00 Bisacodyl (Dulcolax Supp) 10 mg PRN DAILY PRN PA CONSTIPATION; Start 05/12/20 at 08:00 Heparin Sodium (Porcine) (Heparin Sodium) 5,000 unit Q8HRS SQ Last administered on 05/13/20at 22:54; Start 05/12/20 at 14:00 Insulin Human Lispro (HumaLOG) 0-7 UNITS TIDWMEALS SQ ; Start 05/12/20 at 12:00 Dextrose (Dextrose 50%-Water Syringe) 12.5 gm PRN Q15MIN PRN IV SEE COMMENTS; Start 05/12/20 at 08:15 Sodium Chloride 1,000 ml @ 125 mls/hr Q8H IV Last administered on 05/14/20at 05:52; Start 05/13/20 at 17:00 Cefazolin Sodium/ Dextrose 50 ml @ 100 mls/hr 1X PREOP ONCE IV ; Start 05/14/20 at 06:00; Stop 05/14/20 at 06:29; Status DC Active Scripts Active Reported Probiotic (Lactobacillus Acidophilus) 1 Each Capsule 1 Each PO BID Fish Oil 1,000 Mg Capsule (Roosevelt-3 Fatty Acids/Fish Oil) 1 Each Capsule 1 Each PO BID Calcium + Vitamin D Tablet (Calcium Carbonate/Vitamin D3) 1 Each Tablet 1 Each PO BID Metformin Hcl 500 Mg Tablet 500 Mg PO BIDWMEALS No Known Medications Prior To Admisstion (Info) Each 1 Each MC 1X Vitals/I & O Vital Sign - Last 24 Hours 05/13/20 05/13/20 05/13/20 05/13/20 10:52 15:00 19:20 20:45 Temp 98.5 98.7 98.5 98.5 98.7 98.5 Pulse 74 65 65 Resp 18 16 18 B/P (MAP) 122/69 (86) 115/66 (82) 130/74 (92) Pulse Ox 96 96 96 O2 Delivery Room Air Room Air Room Air Room Air 05/13/20 05/14/20 05/14/20 23:00 03:00 07:00 Temp 98.1 98.3 98.4 98.1 98.3 98.4 Pulse 62 62 56 Resp 18 20 18 B/P (MAP) 120/72 (88) 117/73 (88) 131/74 (93) Pulse Ox 97 94 95 O2 Delivery Room Air Room Air Room Air Intake and Output0 05/13/20 05/13/20 05/14/20 15:00 23:00 07:00 Intake Total 0 ml 0 ml Output Total 1200 ml 1200 ml Balance -1200 ml -1200 ml Justicifation of Admission Dx: Justifications for Admission: Justification of Admission Dx: Yes NOEMY SCOTT MD May 14, 2020 08:09
[2020-05-14 08:49] LABS: BASO % 1 % (0-3); EOS # 0.2 x10^3/uL (0.0-0.7); EOS % 4 % (0-3); HEMATOCRIT 39.5 % (39.0-53.0); HEMOGLOBIN 13.4 g/dL (13.0-17.5); LYMPH # 1.5 x10^3/uL (1.0-4.8); LYMPH % 31 % (24-48); MEAN CORPUSCULAR HEMOGLOBIN 29 pg (25-35); MEAN CORPUSCULAR HGB CONC 34 g/dL (31-37); MEAN CORPUSCULAR VOLUME 86 fL (79-100); MONO # 0.3 x10^3/uL (0.0-1.1); MONO % 6 % (0-9); NEUT # 2.9 x10^3/uL (1.8-7.7); NEUT % 59 % (31-73); PLATELET COUNT 239 x10^3/uL (140-400); RED CELL DISTRIBUTION WIDTH 13.6 % (11.5-14.5)
[2020-05-14 09:00] LABS: CALCIUM 8.2 mg/dL (8.5-10.1); CREATININE 0.8 mg/dL (0.7-1.3); GFR 104.5
--- NOTE | 2020-05-14 09:05 | PDOC ---
SURGICAL PROGRESS NOTE DATE: 05/14/20 TIME: 09:03 Subjective no pain no nausea Vital Signs Vital Signs Date Time Temp Pulse Resp B/P (MAP) Pulse Ox O2 Delivery O2 Flow Rate FiO2 05/14/20 07:40 Room Air 05/14/20 07:00 98.4 56 18 131/74 (93) 95 98.4 I&O Intake and Output 05/14/20 07:00 Intake Total 0 ml Output Total 2400 ml Balance -2400 ml Intake Oral 0 ml Output Urine Total 2400 ml General: Alert, Oriented X3, Cooperative Abdomen: Soft, No tenderness Labs Laboratory Tests Test 05/12/20 11:44 05/12/20 16:34 05/12/20 20:50 05/13/20 07:37 Glucose (Fingerstick) 103 mg/dL (70-99) 120 mg/dL (70-99) 116 mg/dL (70-99) 128 mg/dL (70-99) Test 05/13/20 07:49 05/13/20 17:10 05/13/20 20:52 05/13/20 22:45 White Blood Count 5.9 x10^3/uL (4.0-11.0) Red Blood Count 4.43 x10^6/uL (4.30-5.70) Hemoglobin 13.2 g/dL (13.0-17.5) Hematocrit 37.9 % (39.0-53.0) Mean Corpuscular Volume 85 fL (79-100) Mean Corpuscular Hemoglobin 30 pg (25-35) Mean Corpuscular Hemoglobin Concent 35 g/dL (31-37) Red Cell Distribution Width 13.5 % (11.5-14.5) Platelet Count 217 x10^3/uL (140-400) Neutrophils (%) (Auto) 64 % (31-73) Lymphocytes (%) (Auto) 25 % (24-48) Monocytes (%) (Auto) 7 % (0-9) Eosinophils (%) (Auto) 4 % (0-3) Basophils (%) (Auto) 1 % (0-3) Neutrophils # (Auto) 3.8 x10^3/uL (1.8-7.7) Lymphocytes # (Auto) 1.5 x10^3/uL (1.0-4.8) Monocytes # (Auto) 0.4 x10^3/uL (0.0-1.1) Eosinophils # (Auto) 0.2 x10^3/uL (0.0-0.7) Basophils # (Auto) 0.0 x10^3/uL (0.0-0.2) Sodium Level 141 mmol/L (136-145) Potassium Level 3.8 mmol/L (3.5-5.1) Chloride Level 104 mmol/L (98-107) Carbon Dioxide Level 25 mmol/L (21-32) Anion Gap 12 (6-14) Blood Urea Nitrogen 7 mg/dL (8-26) Creatinine 0.7 mg/dL (0.7-1.3) Estimated GFR (Cockcroft-Gault) 122.0 Glucose Level 113 mg/dL (70-99) Hemoglobin A1c 5.8 % (4.8-5.6) Calcium Level 8.3 mg/dL (8.5-10.1) Total Bilirubin 0.9 mg/dL (0.2-1.0) Direct Bilirubin 0.2 mg/dL (0.0-0.2) Aspartate Amino Transf (AST/SGOT) 23 U/L (15-37) Alanine Aminotransferase (ALT/SGPT) 70 U/L (16-63) Alkaline Phosphatase 73 U/L (46-116) Total Protein 6.2 g/dL (6.4-8.2) Albumin 3.1 g/dL (3.4-5.0) Lipase 347 U/L (73-393) Glucose (Fingerstick) 111 mg/dL (70-99) 98 mg/dL (70-99) SARS-CoV-2 Antigen (Rapid) Negative (NEGATIVE) Test 05/14/20 07:10 Glucose (Fingerstick) 93 mg/dL (70-99) Laboratory Tests Test 05/13/20 17:10 05/13/20 20:52 05/13/20 22:45 05/14/20 07:10 Glucose (Fingerstick) 111 mg/dL (70-99) 98 mg/dL (70-99) 93 mg/dL (70-99) SARS-CoV-2 Antigen (Rapid) Negative (NEGATIVE) Problem List Problems Medical Problems: (1) Pancreatitis Status: Acute Assessment/Plan plan for lap antonio today Justicifation of Admission Dx: Justifications for Admission: Justification of Admission Dx: Yes LUCRECIA NEGRO APRN May 14, 2020 09:04
--- NOTE | 2020-05-14 10:51 | PDOC ---
Date of Service: DATE: 05/14/20 TIME: 10:47 Subjective: Subjective: Upper abd pain improved - "just tender." Objective: Vital Signs: Vital Signs Date Time Temp Pulse Resp B/P (MAP) Pulse Ox O2 Delivery O2 Flow Rate FiO2 05/14/20 07:40 Room Air 05/14/20 07:00 98.4 56 18 131/74 (93) 95 98.4 Labs: Laboratory Tests Test 05/13/20 17:10 05/13/20 20:52 05/13/20 22:45 05/14/20 07:10 Glucose (Fingerstick) 111 mg/dL 98 mg/dL 93 mg/dL SARS-CoV-2 Antigen (Rapid) Negative Test 05/14/20 07:46 05/14/20 08:16 Sodium Level 145 mmol/L Potassium Level 4.0 mmol/L Chloride Level 109 mmol/L Carbon Dioxide Level 25 mmol/L Anion Gap 11 Blood Urea Nitrogen 8 mg/dL Creatinine 0.8 mg/dL Estimated GFR (Cockcroft-Gault) 104.5 Glucose Level 92 mg/dL Calcium Level 8.2 mg/dL White Blood Count 5.0 x10^3/uL Red Blood Count 4.60 x10^6/uL Hemoglobin 13.4 g/dL Hematocrit 39.5 % Mean Corpuscular Volume 86 fL Mean Corpuscular Hemoglobin 29 pg Mean Corpuscular Hemoglobin Concent 34 g/dL Red Cell Distribution Width 13.6 % Platelet Count 239 x10^3/uL Neutrophils (%) (Auto) 59 % Lymphocytes (%) (Auto) 31 % Monocytes (%) (Auto) 6 % Eosinophils (%) (Auto) 4 % Basophils (%) (Auto) 1 % Neutrophils # (Auto) 2.9 x10^3/uL Lymphocytes # (Auto) 1.5 x10^3/uL Monocytes # (Auto) 0.3 x10^3/uL Eosinophils # (Auto) 0.2 x10^3/uL Basophils # (Auto) 0.0 x10^3/uL Lipase 321 U/L PE: GEN: NAD - up in chair LUNGS: CTAB HEART: RRR ABD: S/ND/NT NEURO/PSYCH: A & O 3 A/P: Gallstone pancreatitis - lipase now normal x 2, pain improved Mildly elevated AST and ALT - improving S/p gastric sleeve Hep C Ab negative, rapid COVID negative 05/13 -- Plans for cholecystectomy w/ IOC today, will follow. Justicifation of Admission Dx: Justifications for Admission: Justification of Admission Dx: Yes STEFANIE LORD May 14, 2020 10:51
--- NOTE | 2020-05-14 11:24 | NUR ---
SW following. Discussed with RN, pt from home, room air, NPO, rapid COVID-19 negative. Pt having a antonio today. RN advised no SW needs at this time. SW will continue to follow.
[2020-05-14] MEDS ORDERED: LIDOCAINE 2% PF 5 ML VIAL. ONE ×2 (13:40→16:41)
[2020-05-14] MEDS ORDERED: DEXAMETHASONE SOD PHOS 4 MG/ML VIAL ONE (13:40)
[2020-05-14] MEDS ORDERED: ONDANSETRON PF 4 MG/2 ML VIAL. ONE (13:40)
[2020-05-14] MEDS ORDERED: ROCURONIUM 50 MG/5 ML VIAL. ONE (13:40)
[2020-05-14] MEDS ORDERED: PROPOFOL 10 MG/ML (20ML) VIAL. IV ONE (13:40)
[2020-05-14] MEDS ORDERED: SUCCINYLCHOLINE 200 MG/10 ML VIAL. ONE (13:44)
[2020-05-14] MEDS ORDERED: MIDAZOLAM HCL/PF 2 MG/2 ML VIAL. ONE (14:15)
[2020-05-14] MEDS ORDERED: fentaNYL PF VIAL 100 MCG/2 ML VIAL ONE ×3 (14:15→17:49)
[2020-05-14] MEDS: IV RINGERS,LACTATED 1000ML 1,000 ML IV SCH ×2 (14:26→20:30)
[2020-05-14] MEDS ORDERED: BISACODYL 10 MG SUPP.RECT. ONE (14:40)
[2020-05-14] MEDS ORDERED: IOHEXOL 300 MG/ML 50 ML VIAL. ONE (14:40)
[2020-05-14] MEDS ORDERED: SURGICEL HEMOSTAT 4X8 EACH. ONE (14:40)
[2020-05-14] MEDS ORDERED: HEPARIN 1,000 UNIT in IV NORMAL SALINE 1,000 ML for SURG PERIOP IRR ONE (15:00)
[2020-05-14] MEDS ORDERED: BUPIVACAINE-EPI 0.5%-1:200000 MPF 30 ML VIAL. INJ ONE (15:00)
--- NOTE | 2020-05-14 15:24 | PDOC ---
SURGICAL PROGRESS NOTE DATE: 05/14/20 TIME: 15:22 Subjective Pre-Op Note 44 yo M with gallstone pancreatitis. symptoms have improved, lipase wnl TO OR for laparoscopic versus open cholecystectomy with cholangiogram. R/R/B/A d/w pt and pt's supportive family. Risks, including, but not limited to: bleeding, infection, damage to surrounding structures, risk of anesthesia, risk of open. They appear to understand, their questions are answered and they elect to pro ceed. Vital Signs Vital Signs Date Time Temp Pulse Resp B/P (MAP) Pulse Ox O2 Delivery O2 Flow Rate FiO2 05/14/20 13:58 98.2 58 22 128/77 96 Room Air 98.2 I&O Intake and Output 05/14/20 07:00 Intake Total 0 ml Output Total 2400 ml Balance -2400 ml Intake Oral 0 ml Output Urine Total 2400 ml Labs Laboratory Tests Test 05/12/20 16:34 05/12/20 20:50 05/13/20 07:37 05/13/20 07:49 Glucose (Fingerstick) 120 mg/dL (70-99) 116 mg/dL (70-99) 128 mg/dL (70-99) White Blood Count 5.9 x10^3/uL (4.0-11.0) Red Blood Count 4.43 x10^6/uL (4.30-5.70) Hemoglobin 13.2 g/dL (13.0-17.5) Hematocrit 37.9 % (39.0-53.0) Mean Corpuscular Volume 85 fL (79-100) Mean Corpuscular Hemoglobin 30 pg (25-35) Mean Corpuscular Hemoglobin Concent 35 g/dL (31-37) Red Cell Distribution Width 13.5 % (11.5-14.5) Platelet Count 217 x10^3/uL (140-400) Neutrophils (%) (Auto) 64 % (31-73) Lymphocytes (%) (Auto) 25 % (24-48) Monocytes (%) (Auto) 7 % (0-9) Eosinophils (%) (Auto) 4 % (0-3) Basophils (%) (Auto) 1 % (0-3) Neutrophils # (Auto) 3.8 x10^3/uL (1.8-7.7) Lymphocytes # (Auto) 1.5 x10^3/uL (1.0-4.8) Monocytes # (Auto) 0.4 x10^3/uL (0.0-1.1) Eosinophils # (Auto) 0.2 x10^3/uL (0.0-0.7) Basophils # (Auto) 0.0 x10^3/uL (0.0-0.2) Sodium Level 141 mmol/L (136-145) Potassium Level 3.8 mmol/L (3.5-5.1) Chloride Level 104 mmol/L (98-107) Carbon Dioxide Level 25 mmol/L (21-32) Anion Gap 12 (6-14) Blood Urea Nitrogen 7 mg/dL (8-26) Creatinine 0.7 mg/dL (0.7-1.3) Estimated GFR (Cockcroft-Gault) 122.0 Glucose Level 113 mg/dL (70-99) Hemoglobin A1c 5.8 % (4.8-5.6) Calcium Level 8.3 mg/dL (8.5-10.1) Total Bilirubin 0.9 mg/dL (0.2-1.0) Direct Bilirubin 0.2 mg/dL (0.0-0.2) Aspartate Amino Transf (AST/SGOT) 23 U/L (15-37) Alanine Aminotransferase (ALT/SGPT) 70 U/L (16-63) Alkaline Phosphatase 73 U/L (46-116) Total Protein 6.2 g/dL (6.4-8.2) Albumin 3.1 g/dL (3.4-5.0) Lipase 347 U/L (73-393) Hepatitis C IgG Antibody Nonreactive (Nonreactive) Test 05/13/20 17:10 05/13/20 20:52 05/13/20 22:45 05/14/20 07:10 Glucose (Fingerstick) 111 mg/dL (70-99) 98 mg/dL (70-99) 93 mg/dL (70-99) Coronavirus (PCR) Not detected (Not Detected) SARS-CoV-2 Antigen (Rapid) Negative (NEGATIVE) Test 05/14/20 07:46 05/14/20 08:16 05/14/20 11:28 Sodium Level 145 mmol/L (136-145) Potassium Level 4.0 mmol/L (3.5-5.1) Chloride Level 109 mmol/L (98-107) Carbon Dioxide Level 25 mmol/L (21-32) Anion Gap 11 (6-14) Blood Urea Nitrogen 8 mg/dL (8-26) Creatinine 0.8 mg/dL (0.7-1.3) Estimated GFR (Cockcroft-Gault) 104.5 Glucose Level 92 mg/dL (70-99) Calcium Level 8.2 mg/dL (8.5-10.1) White Blood Count 5.0 x10^3/uL (4.0-11.0) Red Blood Count 4.60 x10^6/uL (4.30-5.70) Hemoglobin 13.4 g/dL (13.0-17.5) Hematocrit 39.5 % (39.0-53.0) Mean Corpuscular Volume 86 fL (79-100) Mean Corpuscular Hemoglobin 29 pg (25-35) Mean Corpuscular Hemoglobin Concent 34 g/dL (31-37) Red Cell Distribution Width 13.6 % (11.5-14.5) Platelet Count 239 x10^3/uL (140-400) Neutrophils (%) (Auto) 59 % (31-73) Lymphocytes (%) (Auto) 31 % (24-48) Monocytes (%) (Auto) 6 % (0-9) Eosinophils (%) (Auto) 4 % (0-3) Basophils (%) (Auto) 1 % (0-3) Neutrophils # (Auto) 2.9 x10^3/uL (1.8-7.7) Lymphocytes # (Auto) 1.5 x10^3/uL (1.0-4.8) Monocytes # (Auto) 0.3 x10^3/uL (0.0-1.1) Eosinophils # (Auto) 0.2 x10^3/uL (0.0-0.7) Basophils # (Auto) 0.0 x10^3/uL (0.0-0.2) Lipase 321 U/L (73-393) Glucose (Fingerstick) 97 mg/dL (70-99) Laboratory Tests Test 05/13/20 17:10 05/13/20 20:52 05/13/20 22:45 05/14/20 07:10 Glucose (Fingerstick) 111 mg/dL (70-99) 98 mg/dL (70-99) 93 mg/dL (70-99) Coronavirus (PCR) Not detected (Not Detected) SARS-CoV-2 Antigen (Rapid) Negative (NEGATIVE) Test 05/14/20 07:46 05/14/20 08:16 05/14/20 11:28 Sodium Level 145 mmol/L (136-145) Potassium Level 4.0 mmol/L (3.5-5.1) Chloride Level 109 mmol/L (98-107) Carbon Dioxide Level 25 mmol/L (21-32) Anion Gap 11 (6-14) Blood Urea Nitrogen 8 mg/dL (8-26) Creatinine 0.8 mg/dL (0.7-1.3) Estimated GFR (Cockcroft-Gault) 104.5 Glucose Level 92 mg/dL (70-99) Calcium Level 8.2 mg/dL (8.5-10.1) White Blood Count 5.0 x10^3/uL (4.0-11.0) Red Blood Count 4.60 x10^6/uL (4.30-5.70) Hemoglobin 13.4 g/dL (13.0-17.5) Hematocrit 39.5 % (39.0-53.0) Mean Corpuscular Volume 86 fL (79-100) Mean Corpuscular Hemoglobin 29 pg (25-35) Mean Corpuscular Hemoglobin Concent 34 g/dL (31-37) Red Cell Distribution Width 13.6 % (11.5-14.5) Platelet Count 239 x10^3/uL (140-400) Neutrophils (%) (Auto) 59 % (31-73) Lymphocytes (%) (Auto) 31 % (24-48) Monocytes (%) (Auto) 6 % (0-9) Eosinophils (%) (Auto) 4 % (0-3) Basophils (%) (Auto) 1 % (0-3) Neutrophils # (Auto) 2.9 x10^3/uL (1.8-7.7) Lymphocytes # (Auto) 1.5 x10^3/uL (1.0-4.8) Monocytes # (Auto) 0.3 x10^3/uL (0.0-1.1) Eosinophils # (Auto) 0.2 x10^3/uL (0.0-0.7) Basophils # (Auto) 0.0 x10^3/uL (0.0-0.2) Lipase 321 U/L (73-393) Glucose (Fingerstick) 97 mg/dL (70-99) Problem List Problems Medical Problems: (1) Pancreatitis Status: Acute Justicifation of Admission Dx: Justifications for Admission: Justification of Admission Dx: Yes BRIONNA CM MD May 14, 2020 15:24
[2020-05-14] MEDS ORDERED: KETOROLAC 30 MG/ML VIAL. ONE (16:06)
[2020-05-14] MEDS ORDERED: SEVOFLURANE 61 TO 120 MINUTES. IH ONE (16:06)
--- NOTE | 2020-05-14 16:54 | RAD ---
Intraoperative cholangiogram 05/14/2020 CLINICAL HISTORY: Cholelithiasis. Cholecystitis. Laparoscopic cholecystectomy. Two digital spot radiographs of the right upper quadrant of the abdomen were obtained during an intra operative cholangiogram. The total fluoroscopic time is 0.9 minutes. These images demonstrate contras t opacifying the cystic duct remnant, common hepatic duct, the left and right hepatic ducts and their proximal branches and the common bile duct. These ducts are normal in caliber. No filling defect is seen. Free spillage of contrast into the duodenum is noted. IMPRESSION: Negative study. Electronically signed by: Elian Mack MD (05/14/2020 4:52 PM) [id number]
[2020-05-14] MEDS: fentaNYL PF VIAL 100 MCG/2 ML VIAL IV PRN ×5 (17:12→20:27)
[2020-05-14] MEDS ORDERED: fentaNYL PF VIAL 100 MCG/2 ML VIAL IV PRN (17:30)
[2020-05-14] MEDS ORDERED: IV RINGERS,LACTATED 1000ML 1,000 ML IV SCH (17:30)
[2020-05-14] MEDS ORDERED: MORPHINE SULFATE 2 MG/ML VIAL. IV PRN (17:30)
[2020-05-14] MEDS ORDERED: LIDOCAINE 1% PF 2 ML VIAL. ID PRN (17:30)
[2020-05-14] MEDS ORDERED: HYDROmorphone 2 MG/ML VIAL IV PRN (17:30)
[2020-05-14] MEDS ORDERED: PROCHLORPERAZINE 10 MG/2 ML VIAL. IV PRN (17:30)
[2020-05-14] MEDS ORDERED: ONDANSETRON PF 4 MG/2 ML VIAL. IV PRN (17:30)
--- NOTE | 2020-05-14 20:29 | PDOC4 ---
OPERATIVE NOTE Date: Date: May 14, 2020 Pre-Op Diagnosis: Gallstone pancreatitis Post-Op Diagnosis: same, calculous cholecystitis Procedure Performed: laparoscopic cholecystectomy with cholangiogram Surgeon: Teo Cm Anesthesia Type: GETA plus local Blood Loss: 50 Specimans Obtained: gallbladder Findings: morbid obesity, fatty liver, inflammation of gallbladder, normal cholangiogram Complications: none Operative Note: After obtaining informed consent, patient was taken to OR, induced under GETA and prepped in the usual fashion. 5 mm port placed umbilical and RUQ, 12 port placed epigastric, all under laparoscopic guidance. Abdominal cavity was explored and noted as above. Gallbladder grasped and triangle of calot exposed. Critical view was obtained which demonstrated cystic artery and duct as only structure into gallbladder. Cystic artery ligated with clips. Cholangiogram was obtained via cystic duct and was normal. Cystic duct ligated with clips and hemolok. Gallbladder taken off fossa sharply using cautery, placed in bag, delivered and sent to pathology. Copious irrigation. No evidence of bleeding or other pathology at time of closure. Surgicel placed on fossa. 19 DARIANA placed in fossa and brought out RUQ and secured with 3 0 nylon. Ports removed without bleeding. Fascia repaired with 0 vicryl. Skin repaired with 4 0 monocryl. Dressing placed. Patient tolerated procedure well and sent to PACU in stable condition. All counts correct. Wound class is 3. BRIONNA CM MD May 14, 2020 20:29
[2020-05-14] MEDS ORDERED: NALOXONE 0.4 MG/ML VIAL. IV PRN (20:30)
[2020-05-14] MEDS ORDERED: IV NORMAL SALINE 1000ML BAG 1,000 ML IV SCH (20:30)
[2020-05-15] MEDS: IV RINGERS,LACTATED 1000ML 1,000 ML IV SCH ×3 (00:30→08:41)
[2020-05-15] MEDS: MAG HYDROX/ALUMINUM HYD/SIMETH 30 ML ORAL.SUSP PO PRN ×2 (02:22→08:37)
[2020-05-15] MEDS: HYDROcodone/APAP 5/325MG 1 TAB TABLET PO PRN ×3 (02:23→13:13)
[2020-05-15] MEDS: IV NORMAL SALINE 1000ML BAG 1,000 ML IV SCH ×2 (02:31→08:38)
[2020-05-15 03:00] VITALS: BP 118/68
[2020-05-15] MEDS: HEPARIN for SUB-Q USE 5,000 UNIT/ML VIAL. SQ SCH ×2 (06:10→12:00)
[2020-05-15 06:43] LABS: BASO % 1 % (0-3); EOS % 1 % (0-3); HEMATOCRIT 37.2 % (39.0-53.0); LYMPH # 1.2 x10^3/uL (1.0-4.8); LYMPH % 20 % (24-48); MEAN CORPUSCULAR HEMOGLOBIN 30 pg (25-35); MEAN CORPUSCULAR HGB CONC 35 g/dL (31-37); MEAN CORPUSCULAR VOLUME 85 fL (79-100); MONO # 0.3 x10^3/uL (0.0-1.1); MONO % 6 % (0-9); NEUT # 4.6 x10^3/uL (1.8-7.7); NEUT % 73 % (31-73); PLATELET COUNT 253 x10^3/uL (140-400); RED CELL DISTRIBUTION WIDTH 13.3 % (11.5-14.5); WHITE BLOOD COUNT 6.2 x10^3/uL (4.0-11.0)
[2020-05-15 07:00] VITALS: BP 116/71
[2020-05-15 07:02] LABS: CALCIUM 8.1 mg/dL (8.5-10.1); CREATININE 0.6 mg/dL (0.7-1.3); GFR 145.7; POTASSIUM 4.3 mmol/L (3.5-5.1)
[2020-05-15 07:09] LABS: ALBUMIN 2.9 g/dL (3.4-5.0); DIRECT BILIRUBIN 0.2 mg/dL (0.0-0.2); TOTAL BILIRUBIN 0.5 mg/dL (0.2-1.0); TOTAL PROTEIN 5.8 g/dL (6.4-8.2)
[2020-05-15] MEDS: INSULIN LISPRO 300 UNITS/3 ML VIAL. SQ SCH ×2 (08:00→11:48)
--- NOTE | 2020-05-15 08:48 | PDOC ---
SURGICAL PROGRESS NOTE DATE: 05/15/20 TIME: 08:46 Subjective up ambulating distended no flatus pain managed Vital Signs Vital Signs Date Time Temp Pulse Resp B/P (MAP) Pulse Ox O2 Delivery O2 Flow Rate FiO2 05/15/20 08:37 20 97 Room Air 05/15/20 07:00 98.0 58 116/71 (86) 98.0 05/14/20 17:54 6.0 I&O Intake and Output 05/15/20 07:00 Intake Total 3070 ml Output Total 405 ml Balance 2665 ml Intake Oral 220 ml IV Total 2850 ml Output Urine Total 300 ml Drainage Total 55 ml Estimated Blood Loss 50 ml # Voids 3 General: Alert, Oriented X3, Cooperative Abdomen: Soft, Other (distended, esteban serosang) Labs Laboratory Tests Test 05/13/20 17:10 05/13/20 20:52 05/13/20 22:45 05/14/20 07:10 Glucose (Fingerstick) 111 mg/dL (70-99) 98 mg/dL (70-99) 93 mg/dL (70-99) Coronavirus (PCR) Not detected (Not Detected) SARS-CoV-2 Antigen (Rapid) Negative (NEGATIVE) Test 05/14/20 07:46 05/14/20 08:16 05/14/20 11:28 05/14/20 15:31 Sodium Level 145 mmol/L (136-145) Potassium Level 4.0 mmol/L (3.5-5.1) Chloride Level 109 mmol/L (98-107) Carbon Dioxide Level 25 mmol/L (21-32) Anion Gap 11 (6-14) Blood Urea Nitrogen 8 mg/dL (8-26) Creatinine 0.8 mg/dL (0.7-1.3) Estimated GFR (Cockcroft-Gault) 104.5 Glucose Level 92 mg/dL (70-99) Calcium Level 8.2 mg/dL (8.5-10.1) White Blood Count 5.0 x10^3/uL (4.0-11.0) Red Blood Count 4.60 x10^6/uL (4.30-5.70) Hemoglobin 13.4 g/dL (13.0-17.5) Hematocrit 39.5 % (39.0-53.0) Mean Corpuscular Volume 86 fL (79-100) Mean Corpuscular Hemoglobin 29 pg (25-35) Mean Corpuscular Hemoglobin Concent 34 g/dL (31-37) Red Cell Distribution Width 13.6 % (11.5-14.5) Platelet Count 239 x10^3/uL (140-400) Neutrophils (%) (Auto) 59 % (31-73) Lymphocytes (%) (Auto) 31 % (24-48) Monocytes (%) (Auto) 6 % (0-9) Eosinophils (%) (Auto) 4 % (0-3) Basophils (%) (Auto) 1 % (0-3) Neutrophils # (Auto) 2.9 x10^3/uL (1.8-7.7) Lymphocytes # (Auto) 1.5 x10^3/uL (1.0-4.8) Monocytes # (Auto) 0.3 x10^3/uL (0.0-1.1) Eosinophils # (Auto) 0.2 x10^3/uL (0.0-0.7) Basophils # (Auto) 0.0 x10^3/uL (0.0-0.2) Lipase 321 U/L (73-393) Glucose (Fingerstick) 97 mg/dL (70-99) 77 mg/dL (70-99) Test 05/14/20 17:34 05/14/20 20:26 05/15/20 06:23 05/15/20 07:19 Glucose (Fingerstick) 112 mg/dL (70-99) 161 mg/dL (70-99) 117 mg/dL (70-99) White Blood Count 6.2 x10^3/uL (4.0-11.0) Red Blood Count 4.40 x10^6/uL (4.30-5.70) Hemoglobin 13.0 g/dL (13.0-17.5) Hematocrit 37.2 % (39.0-53.0) Mean Corpuscular Volume 85 fL (79-100) Mean Corpuscular Hemoglobin 30 pg (25-35) Mean Corpuscular Hemoglobin Concent 35 g/dL (31-37) Red Cell Distribution Width 13.3 % (11.5-14.5) Platelet Count 253 x10^3/uL (140-400) Neutrophils (%) (Auto) 73 % (31-73) Lymphocytes (%) (Auto) 20 % (24-48) Monocytes (%) (Auto) 6 % (0-9) Eosinophils (%) (Auto) 1 % (0-3) Basophils (%) (Auto) 1 % (0-3) Neutrophils # (Auto) 4.6 x10^3/uL (1.8-7.7) Lymphocytes # (Auto) 1.2 x10^3/uL (1.0-4.8) Monocytes # (Auto) 0.3 x10^3/uL (0.0-1.1) Eosinophils # (Auto) 0.0 x10^3/uL (0.0-0.7) Basophils # (Auto) 0.0 x10^3/uL (0.0-0.2) Sodium Level 140 mmol/L (136-145) Potassium Level 4.3 mmol/L (3.5-5.1) Chloride Level 108 mmol/L (98-107) Carbon Dioxide Level 20 mmol/L (21-32) Anion Gap 12 (6-14) Blood Urea Nitrogen 7 mg/dL (8-26) Creatinine 0.6 mg/dL (0.7-1.3) Estimated GFR (Cockcroft-Gault) 145.7 Glucose Level 102 mg/dL (70-99) Calcium Level 8.1 mg/dL (8.5-10.1) Total Bilirubin 0.5 mg/dL (0.2-1.0) Direct Bilirubin 0.2 mg/dL (0.0-0.2) Aspartate Amino Transf (AST/SGOT) 45 U/L (15-37) Alanine Aminotransferase (ALT/SGPT) 68 U/L (16-63) Alkaline Phosphatase 63 U/L (46-116) Total Protein 5.8 g/dL (6.4-8.2) Albumin 2.9 g/dL (3.4-5.0) Laboratory Tests Test 05/14/20 11:28 05/14/20 15:31 05/14/20 17:34 05/14/20 20:26 Glucose (Fingerstick) 97 mg/dL (70-99) 77 mg/dL (70-99) 112 mg/dL (70-99) 161 mg/dL (70-99) Test 05/15/20 06:23 05/15/20 07:19 White Blood Count 6.2 x10^3/uL (4.0-11.0) Red Blood Count 4.40 x10^6/uL (4.30-5.70) Hemoglobin 13.0 g/dL (13.0-17.5) Hematocrit 37.2 % (39.0-53.0) Mean Corpuscular Volume 85 fL (79-100) Mean Corpuscular Hemoglobin 30 pg (25-35) Mean Corpuscular Hemoglobin Concent 35 g/dL (31-37) Red Cell Distribution Width 13.3 % (11.5-14.5) Platelet Count 253 x10^3/uL (140-400) Neutrophils (%) (Auto) 73 % (31-73) Lymphocytes (%) (Auto) 20 % (24-48) Monocytes (%) (Auto) 6 % (0-9) Eosinophils (%) (Auto) 1 % (0-3) Basophils (%) (Auto) 1 % (0-3) Neutrophils # (Auto) 4.6 x10^3/uL (1.8-7.7) Lymphocytes # (Auto) 1.2 x10^3/uL (1.0-4.8) Monocytes # (Auto) 0.3 x10^3/uL (0.0-1.1) Eosinophils # (Auto) 0.0 x10^3/uL (0.0-0.7) Basophils # (Auto) 0.0 x10^3/uL (0.0-0.2) Sodium Level 140 mmol/L (136-145) Potassium Level 4.3 mmol/L (3.5-5.1) Chloride Level 108 mmol/L (98-107) Carbon Dioxide Level 20 mmol/L (21-32) Anion Gap 12 (6-14) Blood Urea Nitrogen 7 mg/dL (8-26) Creatinine 0.6 mg/dL (0.7-1.3) Estimated GFR (Cockcroft-Gault) 145.7 Glucose Level 102 mg/dL (70-99) Calcium Level 8.1 mg/dL (8.5-10.1) Total Bilirubin 0.5 mg/dL (0.2-1.0) Direct Bilirubin 0.2 mg/dL (0.0-0.2) Aspartate Amino Transf (AST/SGOT) 45 U/L (15-37) Alanine Aminotransferase (ALT/SGPT) 68 U/L (16-63) Alkaline Phosphatase 63 U/L (46-116) Total Protein 5.8 g/dL (6.4-8.2) Albumin 2.9 g/dL (3.4-5.0) Glucose (Fingerstick) 117 mg/dL (70-99) Problem List Problems Medical Problems: (1) Pancreatitis Status: Acute Assessment/Plan s/p antonio continue drain ambulate Justicifation of Admission Dx: Justifications for Admission: Justification of Admission Dx: Yes LUCRECIA NEGRO [employer] May 15, 2020 08:48
--- NOTE | 2020-05-15 10:10 | PDOC ---
Date of Service: DATE: 05/15/20 TIME: 10:07 Subjective: Subjective: Seen walking halls earlier this morning - RUQ soreness, belching - eating but feels bloated, no flatus. Pain is post-op - much different than on admission - not as severe. Objective: Vital Signs: Vital Signs Date Time Temp Pulse Resp B/P (MAP) Pulse Ox O2 Delivery O2 Flow Rate FiO2 05/15/20 09:37 20 97 Room Air 05/15/20 08:00 6.0 05/15/20 07:00 98.0 58 116/71 (86) 98.0 Labs: Laboratory Tests Test 05/14/20 11:28 05/14/20 15:31 05/14/20 17:34 05/14/20 20:26 Glucose (Fingerstick) 97 mg/dL (70-99) 77 mg/dL (70-99) 112 mg/dL (70-99) 161 mg/dL (70-99) Test 05/15/20 07:19 Glucose (Fingerstick) 117 mg/dL (70-99) Imaging: IOC 05/14 IMPRESSION: Negative study. PE: GEN: NAD - walking hall LUNGS: CTAB HEART: RRR ABD: some distention, mild RUQ discomfort NEURO/PSYCH: A & O 3 A/P: Gallstone pancreatitis s/p cholecystectomy Mildly elevated AST and ALT S/p gastric sleeve -- Continue post-op care per surgery. Justicifation of Admission Dx: Justifications for Admission: Justification of Admission Dx: Yes STEFANIE LORD May 15, 2020 10:10
--- NOTE | 2020-05-15 10:27 | NUR ---
SW following. Discussed with RN, pt from home, room air, clear liquid diet, drain, COVID-19 negative. Pt has not had any flatus as of yet. Pt had surgery on 05/14/20. RN anticipates discharge home with self care in the next day or two. SW will continue to follow.
--- NOTE | 2020-05-15 10:46 | PDOC ---
PROGRESS NOTES Date of Service: DATE: 05/15/20 TIME: 10:44 Chief Complaint Chief Complaint impression Gallstone pancreatitis Transaminitis DM2 Plan: Admit patient with GI and general surgery consultations N.p.o. with IV fluids Pain management with fentanyl, dilaudid IV Zofran as needed MDSS insulin FEN - NPO PPX - Heparin FULL CODE Dispo - inpatient for above plan for lap antonio 05-14 still no flatus or BM, AMBULATE History of Present Illness History of Present Illness Patient is a 44-year-old male who presents to the ER with complaints of worsening epigastric pain. He has had intermittent stabbing pain for the past week, 12/11. His pain was only resolved spontaneously, but he came to the ER when his pain persisted. He reports some associated nausea, but denies any vomiting, diarrhea, or fever. CT abdomen/pelvis and ultrasound obtained in ER showing dilated gallbladder with thickened wall and gallstones, concerning for cholecystitis. Will admit patient for further medical management. 05/13: Patient seen and evaluated bedside. He is feeling much better, but still having some and right upper quadrant tenderness, worse with deep inspiration. Denies nausea, vomiting, or chest pain. Per GI, keep n.p.o. and continue IV fluids. Monitor for improvement of lipase and LFTs. Per general surgery, plan for cholecystectomy once pancreatitis improves, likely tomorrow. Discussed with RN. Vitals Vitals Vital Signs Date Time Temp Pulse Resp B/P (MAP) Pulse Ox O2 Delivery O2 Flow Rate FiO2 05/15/20 09:37 20 97 Room Air 05/15/20 08:00 6.0 05/15/20 07:00 98.0 58 116/71 (86) 98.0 Physical Exam General: Alert, Oriented X3, Cooperative, No acute distress Heart: Regular rate, Normal S1, Normal S2 Lungs: Clear Abdomen: Soft, Other (distended, esteban serosang) Extremities: No clubbing, No cyanosis Skin: No rashes, No breakdown Labs LABS Laboratory Tests Test 05/14/20 11:28 05/14/20 15:31 05/14/20 17:34 05/14/20 20:26 Glucose (Fingerstick) 97 mg/dL (70-99) 77 mg/dL (70-99) 112 mg/dL (70-99) 161 mg/dL (70-99) Test 05/15/20 06:23 05/15/20 07:19 White Blood Count 6.2 x10^3/uL (4.0-11.0) Red Blood Count 4.40 x10^6/uL (4.30-5.70) Hemoglobin 13.0 g/dL (13.0-17.5) Hematocrit 37.2 % (39.0-53.0) Mean Corpuscular Volume 85 fL (79-100) Mean Corpuscular Hemoglobin 30 pg (25-35) Mean Corpuscular Hemoglobin Concent 35 g/dL (31-37) Red Cell Distribution Width 13.3 % (11.5-14.5) Platelet Count 253 x10^3/uL (140-400) Neutrophils (%) (Auto) 73 % (31-73) Lymphocytes (%) (Auto) 20 % (24-48) Monocytes (%) (Auto) 6 % (0-9) Eosinophils (%) (Auto) 1 % (0-3) Basophils (%) (Auto) 1 % (0-3) Neutrophils # (Auto) 4.6 x10^3/uL (1.8-7.7) Lymphocytes # (Auto) 1.2 x10^3/uL (1.0-4.8) Monocytes # (Auto) 0.3 x10^3/uL (0.0-1.1) Eosinophils # (Auto) 0.0 x10^3/uL (0.0-0.7) Basophils # (Auto) 0.0 x10^3/uL (0.0-0.2) Sodium Level 140 mmol/L (136-145) Potassium Level 4.3 mmol/L (3.5-5.1) Chloride Level 108 mmol/L (98-107) Carbon Dioxide Level 20 mmol/L (21-32) Anion Gap 12 (6-14) Blood Urea Nitrogen 7 mg/dL (8-26) Creatinine 0.6 mg/dL (0.7-1.3) Estimated GFR (Cockcroft-Gault) 145.7 Glucose Level 102 mg/dL (70-99) Calcium Level 8.1 mg/dL (8.5-10.1) Total Bilirubin 0.5 mg/dL (0.2-1.0) Direct Bilirubin 0.2 mg/dL (0.0-0.2) Aspartate Amino Transf (AST/SGOT) 45 U/L (15-37) Alanine Aminotransferase (ALT/SGPT) 68 U/L (16-63) Alkaline Phosphatase 63 U/L (46-116) Total Protein 5.8 g/dL (6.4-8.2) Albumin 2.9 g/dL (3.4-5.0) Glucose (Fingerstick) 117 mg/dL (70-99) Assessment and Plan Assessmemt and Plan Problems Medical Problems: (1) Pancreatitis Status: Acute Comment Review of Relevant I have reviewed the following items marc (where applicable) has been applied. Labs Laboratory Tests Test 05/13/20 17:10 05/13/20 20:52 05/13/20 22:45 05/14/20 07:10 Glucose (Fingerstick) 111 mg/dL (70-99) 98 mg/dL (70-99) 93 mg/dL (70-99) Coronavirus (PCR) Not detected (Not Detected) SARS-CoV-2 Antigen (Rapid) Negative (NEGATIVE) Test 05/14/20 07:46 05/14/20 08:16 05/14/20 11:28 05/14/20 15:31 Sodium Level 145 mmol/L (136-145) Potassium Level 4.0 mmol/L (3.5-5.1) Chloride Level 109 mmol/L (98-107) Carbon Dioxide Level 25 mmol/L (21-32) Anion Gap 11 (6-14) Blood Urea Nitrogen 8 mg/dL (8-26) Creatinine 0.8 mg/dL (0.7-1.3) Estimated GFR (Cockcroft-Gault) 104.5 Glucose Level 92 mg/dL (70-99) Calcium Level 8.2 mg/dL (8.5-10.1) White Blood Count 5.0 x10^3/uL (4.0-11.0) Red Blood Count 4.60 x10^6/uL (4.30-5.70) Hemoglobin 13.4 g/dL (13.0-17.5) Hematocrit 39.5 % (39.0-53.0) Mean Corpuscular Volume 86 fL (79-100) Mean Corpuscular Hemoglobin 29 pg (25-35) Mean Corpuscular Hemoglobin Concent 34 g/dL (31-37) Red Cell Distribution Width 13.6 % (11.5-14.5) Platelet Count 239 x10^3/uL (140-400) Neutrophils (%) (Auto) 59 % (31-73) Lymphocytes (%) (Auto) 31 % (24-48) Monocytes (%) (Auto) 6 % (0-9) Eosinophils (%) (Auto) 4 % (0-3) Basophils (%) (Auto) 1 % (0-3) Neutrophils # (Auto) 2.9 x10^3/uL (1.8-7.7) Lymphocytes # (Auto) 1.5 x10^3/uL (1.0-4.8) Monocytes # (Auto) 0.3 x10^3/uL (0.0-1.1) Eosinophils # (Auto) 0.2 x10^3/uL (0.0-0.7) Basophils # (Auto) 0.0 x10^3/uL (0.0-0.2) Lipase 321 U/L (73-393) Glucose (Fingerstick) 97 mg/dL (70-99) 77 mg/dL (70-99) Test 05/14/20 17:34 05/14/20 20:26 05/15/20 06:23 05/15/20 07:19 Glucose (Fingerstick) 112 mg/dL (70-99) 161 mg/dL (70-99) 117 mg/dL (70-99) White Blood Count 6.2 x10^3/uL (4.0-11.0) Red Blood Count 4.40 x10^6/uL (4.30-5.70) Hemoglobin 13.0 g/dL (13.0-17.5) Hematocrit 37.2 % (39.0-53.0) Mean Corpuscular Volume 85 fL (79-100) Mean Corpuscular Hemoglobin 30 pg (25-35) Mean Corpuscular Hemoglobin Concent 35 g/dL (31-37) Red Cell Distribution Width 13.3 % (11.5-14.5) Platelet Count 253 x10^3/uL (140-400) Neutrophils (%) (Auto) 73 % (31-73) Lymphocytes (%) (Auto) 20 % (24-48) Monocytes (%) (Auto) 6 % (0-9) Eosinophils (%) (Auto) 1 % (0-3) Basophils (%) (Auto) 1 % (0-3) Neutrophils # (Auto) 4.6 x10^3/uL (1.8-7.7) Lymphocytes # (Auto) 1.2 x10^3/uL (1.0-4.8) Monocytes # (Auto) 0.3 x10^3/uL (0.0-1.1) Eosinophils # (Auto) 0.0 x10^3/uL (0.0-0.7) Basophils # (Auto) 0.0 x10^3/uL (0.0-0.2) Sodium Level 140 mmol/L (136-145) Potassium Level 4.3 mmol/L (3.5-5.1) Chloride Level 108 mmol/L (98-107) Carbon Dioxide Level 20 mmol/L (21-32) Anion Gap 12 (6-14) Blood Urea Nitrogen 7 mg/dL (8-26) Creatinine 0.6 mg/dL (0.7-1.3) Estimated GFR (Cockcroft-Gault) 145.7 Glucose Level 102 mg/dL (70-99) Calcium Level 8.1 mg/dL (8.5-10.1) Total Bilirubin 0.5 mg/dL (0.2-1.0) Direct Bilirubin 0.2 mg/dL (0.0-0.2) Aspartate Amino Transf (AST/SGOT) 45 U/L (15-37) Alanine Aminotransferase (ALT/SGPT) 68 U/L (16-63) Alkaline Phosphatase 63 U/L (46-116) Total Protein 5.8 g/dL (6.4-8.2) Albumin 2.9 g/dL (3.4-5.0) Laboratory Tests Test 05/14/20 11:28 05/14/20 15:31 05/14/20 17:34 05/14/20 20:26 Glucose (Fingerstick) 97 mg/dL (70-99) 77 mg/dL (70-99) 112 mg/dL (70-99) 161 mg/dL (70-99) Test 05/15/20 06:23 05/15/20 07:19 White Blood Count 6.2 x10^3/uL (4.0-11.0) Red Blood Count 4.40 x10^6/uL (4.30-5.70) Hemoglobin 13.0 g/dL (13.0-17.5) Hematocrit 37.2 % (39.0-53.0) Mean Corpuscular Volume 85 fL (79-100) Mean Corpuscular Hemoglobin 30 pg (25-35) Mean Corpuscular Hemoglobin Concent 35 g/dL (31-37) Red Cell Distribution Width 13.3 % (11.5-14.5) Platelet Count 253 x10^3/uL (140-400) Neutrophils (%) (Auto) 73 % (31-73) Lymphocytes (%) (Auto) 20 % (24-48) Monocytes (%) (Auto) 6 % (0-9) Eosinophils (%) (Auto) 1 % (0-3) Basophils (%) (Auto) 1 % (0-3) Neutrophils # (Auto) 4.6 x10^3/uL (1.8-7.7) Lymphocytes # (Auto) 1.2 x10^3/uL (1.0-4.8) Monocytes # (Auto) 0.3 x10^3/uL (0.0-1.1) Eosinophils # (Auto) 0.0 x10^3/uL (0.0-0.7) Basophils # (Auto) 0.0 x10^3/uL (0.0-0.2) Sodium Level 140 mmol/L (136-145) Potassium Level 4.3 mmol/L (3.5-5.1) Chloride Level 108 mmol/L (98-107) Carbon Dioxide Level 20 mmol/L (21-32) Anion Gap 12 (6-14) Blood Urea Nitrogen 7 mg/dL (8-26) Creatinine 0.6 mg/dL (0.7-1.3) Estimated GFR (Cockcroft-Gault) 145.7 Glucose Level 102 mg/dL (70-99) Calcium Level 8.1 mg/dL (8.5-10.1) Total Bilirubin 0.5 mg/dL (0.2-1.0) Direct Bilirubin 0.2 mg/dL (0.0-0.2) Aspartate Amino Transf (AST/SGOT) 45 U/L (15-37) Alanine Aminotransferase (ALT/SGPT) 68 U/L (16-63) Alkaline Phosphatase 63 U/L (46-116) Total Protein 5.8 g/dL (6.4-8.2) Albumin 2.9 g/dL (3.4-5.0) Glucose (Fingerstick) 117 mg/dL (70-99) Medications Current Medications Ondansetron HCl (Zofran) 4 mg 1X ONCE IVP Last administered on 05/12/20at 02:22; Start 05/12/20 at 02:00; Stop 05/12/20 at 02:02; Status DC Morphine Sulfate (Morphine Sulfate) 5 mg 1X ONCE IV Last administered on 05/12/20at 02:25; Start 05/12/20 at 02:00; Stop 05/12/20 at 02:02; Status DC Iohexol (Omnipaque 240 Mg/ml) 30 ml 1X ONCE PO Last administered on 05/12/20at 02:20; Start 05/12/20 at 02:15; Stop 05/12/20 at 02:16; Status DC Iohexol (Omnipaque 300 Mg/ml) 75 ml 1X ONCE IV Last administered on 05/12/20at 03:45; Start 05/12/20 at 02:15; Stop 05/12/20 at 02:16; Status DC Info (CONTRAST GIVEN -- Rx MONITORING) 1 each PRN DAILY PRN MC SEE COMMENTS; Start 05/12/20 at 02:15; Stop 05/14/20 at 02:14; Status DC Morphine Sulfate (Morphine Sulfate) 2 mg PRN Q2HR PRN IV PAIN; Start 05/12/20 at 05:30; Stop 05/12/20 at 08:11; Status DC Sodium Chloride 1,000 ml @ 125 mls/hr Q8H IV Last administered on 05/12/20at 22:04; Start 05/12/20 at 05:30; Stop 05/13/20 at 05:29; Status DC Morphine Sulfate (Morphine Sulfate) 5 mg 1X ONCE IV Last administered on at 05:56; Start 05/12/20 at 05:30; Stop 05/12/20 at 05:31; Status DC Hydromorphone HCl (Dilaudid) 2 mg PRN Q4HRS PRN IVP PAIN, 1st CHOICE; Start 05/12/20 at 08:00 Fentanyl Citrate (Fentanyl 2ml Vial) 50 mcg PRN Q2HR PRN IVP PAIN, 2nd CHOICE Last administered on 05/14/20at 23:20; Start 05/12/20 at 08:00 Ondansetron HCl (Zofran) 4 mg PRN Q6HRS PRN IVP NAUSEA/VOMITING, 1st CHOICE; S tart 05/12/20 at 08:00 Prochlorperazine Edisylate (Compazine) 10 mg PRN Q6HRS PRN IVP NAUSEA/VOMITING, 2nd CHOICE; Start 05/12/20 at 08:00 Al Hydroxide/Mg Hydroxide (Mylanta Plus Xs) 30 ml PRN Q3HRS PRN PO HEARTBURN / GAS Last administered on 05/15/20at 08:37; Start 05/12/20 at 08:00 Calcium Carbonate/ Glycine (Tums) 500 mg PRN Q3HRS PRN PO UPSET STOMACH; Start 05/12/20 at 08:00 Zolpidem Tartrate (Ambien) 5 mg PRN QHS PRN PO INSOMNIA, MAY REPEAT IN 1HR Last administered on 05/12/20at 22:16; Start 05/12/20 at 08:00 Acetaminophen (Tylenol) 650 mg PRN Q6HRS PRN PO Headaches, Temp > 101.5F Last administered on 05/13/20at 08:27; Start 05/12/20 at 08:00 Magnesium Hydroxide (Milk Of Magnesia) 2,400 mg PRN Q12HR PRN PO CONSTIPATION; Start 05/12/20 at 08:00 Bisacodyl (Dulcolax Supp) 10 mg PRN DAILY PRN OK CONSTIPATION; Start 05/12/20 at 08:00 Heparin Sodium (Porcine) (Heparin Sodium) 5,000 unit Q8HRS SQ Last administered on 05/15/20at 06:10; Start 05/12/20 at 14:00 Insulin Human Lispro (HumaLOG) 0-7 UNITS TIDWMEALS SQ ; Start 05/12/20 at 12:00 Dextrose (Dextrose 50%-Water Syringe) 12.5 gm PRN Q15MIN PRN IV SEE COMMENTS; Start 05/12/20 at 08:15 Sodium Chloride 1,000 ml @ 125 mls/hr Q8H IV Last administered on 05/15/20at 08:38; Start 05/13/20 at 17:00 Cefazolin Sodium/ Dextrose 50 ml @ 100 mls/hr 1X PREOP ONCE IV Last administered on 05/14/20at 15:37; Start 05/14/20 at 06:00; Stop 05/14/20 at 06:29; Status DC Propofol (Diprivan) 200 mg STK-MED ONCE IV ; Start 05/14/20 at 13:40; Stop 05/14/20 at 13:40; Status DC Dexamethasone Sodium Phosphate (Decadron) 4 mg STK-MED ONCE .ROUTE ; Start 05/14/20 at 13:40; Stop 05/14/20 at 13:40; Status DC Lidocaine HCl (Lidocaine Pf 2% Vial) 5 ml STK-MED ONCE .ROUTE ; Start 05/14/20 at 13:40; Stop 05/14/20 at 13:40; Status DC Ondansetron HCl (Zofran) 4 mg STK-MED ONCE .ROUTE ; Start 05/14/20 at 13:40; Stop 05/14/20 at 13:40; Status DC Rocuronium Post (Zemuron) 50 mg STK-MED ONCE .ROUTE ; Start 05/14/20 at 13:40; Stop 05/14/20 at 13:40; Status DC Succinylcholine Chloride (Anectine) 200 mg STK-MED ONCE .ROUTE ; Start 05/14/20 at 13:44; Stop 05/14/20 at 13:44; Status DC Fentanyl Citrate (Fentanyl 2ml Vial) 100 mcg STK-MED ONCE .ROUTE ; Start 05/14/20 at 14:15; Stop 05/14/20 at 14:15; Status DC Midazolam HCl (Versed) 2 mg STK-MED ONCE .ROUTE ; Start 05/14/20 at 14:15; Stop 05/14/20 at 14:15; Status DC Ringer's Solution 1,000 ml @ 100 mls/hr Q10H IV Last administered on 05/14/20at 14:26; Start 05/14/20 at 14:30; Stop 05/15/20 at 10:21; Status DC Iohexol (Omnipaque 300 Mg/ml) 50 ml STK-MED ONCE .ROUTE Last administered on 05/14/20at 16:08; Start 05/14/20 at 14:40; Stop 05/14/20 at 14:40; Status DC Cellulose (Surgicel Hemostat 4x8) 1 each STK-MED ONCE .ROUTE Last administered on 05/14/20at 16:36; Start 05/14/20 at 14:40; Stop 05/14/20 at 14:40; Status DC Bisacodyl (Dulcolax Supp) 10 mg STK-MED ONCE .ROUTE Last administered on 05/14/20at 16:49; Start 05/14/20 at 14:40; Stop 05/14/20 at 14:40; Status DC Heparin Sodium (Porcine) 1000 unit/Sodium Chloride 1,001 ml @ 1,001 mls/hr 1X ONCE IRR Last administered on 05/14/20at 16:00; Start 05/14/20 at 15:00; Stop 05/14/20 at 15:59; Status DC Bupivacaine HCl/ Epinephrine Bitart (Sensorcain-Epi 0.5%-1:077640 Mpf) 30 ml 1X ONCE INJ Last administered on 05/14/20at 16:00; Start 05/14/20 at 15:00; Stop 05/14/20 at 15:01; Status DC Sevoflurane (Ultane) 60 ml STK-MED ONCE IH ; Start 05/14/20 at 16:06; Stop 05/14/20 at 16:06; Status DC Ketorolac Tromethamine (Toradol 30mg Vial) 30 mg STK-MED ONCE .ROUTE ; Start 05/14/20 at 16:06; Stop 05/14/20 at 16:06; Status DC Lidocaine HCl (Lidocaine Pf 2% Vial) 5 ml STK-MED ONCE .ROUTE ; Start 05/14/20 at 16:41; Stop 05/14/20 at 16:42; Status DC Fentanyl Citrate (Fentanyl 2ml Vial) 100 mcg STK-MED ONCE .ROUTE ; Start 05/14/20 at 17:06; Stop 05/14/20 at 17:07; Status DC Ondansetron HCl (Zofran) 4 mg PRN Q6HRS PRN IV NAUSEA/VOMITING; Start 05/14/20 at 17:30; Stop 05/15/20 at 17:29 Fentanyl Citrate (Fentanyl 2ml Vial) 25 mcg PRN Q5MIN PRN IV MILD PAIN 1-3; Start 05/14/20 at 17:30; Stop 05/15/20 at 17:29 Fentanyl Citrate (Fentanyl 2ml Vial) 50 mcg PRN Q5MIN PRN IV MODERATE TO SEVERE PAIN Last administered on 05/14/20at 20:27; Start 05/14/20 at 17:30; Stop 05/15/20 at 17:29 Morphine Sulfate (Morphine Sulfate) 1 mg PRN Q10MIN PRN IV SEVERE PAIN 7-10; Start 05/14/20 at 17:30; Stop 05/15/20 at 17:29 Ringer's Solution 1,000 ml @ 30 mls/hr Q24H IV ; Start 05/14/20 at 17:30; Stop 05/15/20 at 05:29; Status DC Lidocaine HCl (Xylocaine-Mpf 1% 2ml Vial) 2 ml PRN 1X PRN ID PRIOR TO IV START; Start 05/14/20 at 17:30; Stop 05/15/20 at 17:29 Hydromorphone HCl (Dilaudid) 0.5 mg PRN Q10MIN PRN IV SEV PAIN, Second choice; Start 05/14/20 at 17:30; Stop 05/15/20 at 17:29 Prochlorperazine Edisylate (Compazine) 5 mg PACU PRN PRN IV NAUSEA, MRX1; Start 05/14/20 at 17:30; Stop 05/15/20 at 17:29 Fentanyl Citrate (Fentanyl 2ml Vial) 100 mcg STK-MED ONCE .ROUTE ; Start 05/14/20 at 17:49; Stop 05/14/20 at 17:50; Status DC Ringer's Solution 1,000 ml @ 100 mls/hr Q10H IV ; Start 05/14/20 at 20:30 Acetaminophen/ Hydrocodone Bitart (Lortab 5/325) 1 tab PRN Q4HRS PRN PO MILD PAIN 1-3 Last administered on 05/15/20at 08:37; Start 05/14/20 at 20:30 Naloxone HCl (Narcan) 0.4 mg PRN Q2MIN PRN IV SEE INSTRUCTIONS; Start 05/14/20 at 20:30 Sodium Chloride 1,000 ml @ 25 mls/hr Q24H IV ; Start 05/14/20 at 20:30 Famotidine (Pepcid) 20 mg QHS PO ; Start 05/15/20 at 21:00 Active Scripts Active Reported Probiotic (Lactobacillus Acidophilus) 1 Each Capsule 1 Each PO BID Fish Oil 1,000 Mg Capsule ([place]-3 Fatty Acids/Fish Oil) 1 Each Capsule 1 Each PO BID Calcium + Vitamin D Tablet (Calcium Carbonate/Vitamin D3) 1 Each Tablet 1 Each PO BID Metformin Hcl 500 Mg Tablet 500 Mg PO BIDWMEALS No Known Medications Prior To Admisstion (Info) Each 1 Each MC 1X Vitals/I & O Vital Sign - Last 24 Hours 05/14/20 05/14/20 05/14/20 05/14/20 10:59 13:58 16:54 17:00 Temp 98.2 98.2 98.2 98.2 98.2 98.2 Pulse 56 58 58 Resp 18 22 17 B/P (MAP) 110/69 (83) 128/77 169/89 Pulse Ox 98 96 100 O2 Delivery Room Air Room Air Simple Mask Mask O2 Flow Rate 6 6 05/14/20 05/14/20 05/14/20 05/14/20 17:09 17:12 17:24 17:29 Temp 97.9 97.9 97.9 97.9 Pulse 78 64 Resp 20 18 20 20 B/P (MAP) 158/82 147/78 Pulse Ox 100 100 100 100 O2 Delivery Simple Mask Simple Mask Simple Mask Room Air O2 Flow Rate 6 6.0 6.0 6.0 05/14/20 05/14/20 05/14/20 05/14/20 17:39 17:54 17:54 18:09 Temp 97.9 97.9 97.9 97.9 97.9 97.9 Pulse 71 77 77 Resp 19 20 18 18 B/P (MAP) 150/80 147/79 142/81 Pulse Ox 98 94 98 97 O2 Delivery Room Air Room Air Room Air Room Air O2 Flow Rate 6.0 05/14/20 05/14/20 05/14/20 05/14/20 18:16 18:31 18:35 19:00 Temp 98.7 97.8 98.7 97.8 Pulse 66 63 Resp 18 18 B/P (MAP) 150/78 (102) 143/76 (98) Pulse Ox 97 93 95 O2 Delivery Room Air Room Air Room Air Room Air 05/14/20 05/14/20 05/14/20 05/14/20 20:00 20:15 20:27 20:30 Pulse 67 94 81 Resp 18 18 20 16 B/P (MAP) 144/84 (104) 137/57 (83) 131/75 (93) Pulse Ox 96 97 95 96 O2 Delivery Room Air Room Air Room Air Room Air 05/14/20 05/14/20 05/14/20 05/14/20 20:57 23:00 23:20 23:50 Temp 98.0 98.0 Pulse 71 Resp 18 18 18 16 B/P (MAP) 129/76 (93) Pulse Ox 94 95 95 94 O2 Delivery Room Air Room Air Room Air 05/15/20 05/15/20 05/15/20 05/15/20 02:23 03:00 03:23 07:00 Temp 97.7 98.0 97.7 98.0 Pulse 65 58 Resp 18 18 16 18 B/P (MAP) 118/68 (85) 116/71 (86) Pulse Ox 95 94 94 97 O2 Delivery Room Air Room Air Room Air Room Air 05/15/20 05/15/20 05/15/20 08:00 08:37 09:37 Resp 20 20 Pulse Ox 97 97 O2 Delivery Mask Room Air Room Air O2 Flow Rate 6.0 Intake and Output 05/14/20 05/14/20 05/15/20 15:00 23:00 07:00 Intake Total 1000 ml 1950 ml 120 ml Output Total 380 ml 25 ml Balance 1000 ml 1570 ml 95 ml Justicifation of Admission Dx: Justifications for Admission: Justification of Admission Dx: Yes NOEMY SCOTT MD May 15, 2020 10:46
[2020-05-15 11:00] VITALS: BP 103/60
--- NOTE | 2020-05-15 13:12 | PDOC3 ---
Discharge Summary Date of Admission: May 12, 2020 Date of Discharge: May 15, 2020 Follow-Up: 3-5 days Admitting Diagnosis comment: Chief Complaint Chief Complaint impression Gallstone pancreatitis Transaminitis DM2 Plan: Admit patient with GI and general surgery consultations N.p.o. with IV fluids Pain management with fentanyl, dilaudid IV Zofran as needed MDSS insulin FEN - NPO PPX - Heparin FULL CODE Dispo - inpatient for above plan for lap antonio 05-14 still no flatus or BM, AMBULATE SURG OK WITH D/C PER RN D/D PLANNING 37 MIN History of Present Illness History of Present Illness Patient is a 44-year-old male who presents to the ER with complaints of worsening epigastric pain. He has had intermittent stabbing pain for the past week, 12/11. His pain was only resolved spontaneously, but he came to the ER when his pain persisted. He reports some associated nausea, but denies any vomiting, diarrhea, or fever. CT abdomen/pelvis and ultrasound obtained in ER showing dilated gallbladder with thickened wall and gallstones, concerning for cholecystitis. Will admit patient for further medical management. 05/13: Patient seen and evaluated bedside. He is feeling much better, but still having some and right upper quadrant tenderness, worse with deep inspiration. Denies nausea, vomiting, or chest pain. Per GI, keep n.p.o. and continue IV fluids. Monitor for improvement of lipase and LFTs. Per general surgery, plan for cholecystectomy once pancreatitis improves, likely tomorrow. Discussed with RN. Vitals Vitals Vital Signs Date Time Temp Pulse Resp B/P (MAP) Pulse Ox O2 Delivery O2 Flow Rate FiO2 05/15/20 09:37 20 97 Room Air 05/15/20 08:00 6.0 05/15/20 07:00 98.0 58 116/71 (86) 98.0 Physical Exam General: Alert, Oriented X3, Cooperative, No acute distress Heart: Regular rate, Normal S1, Normal S2 Lungs: Clear Abdomen: Soft, Other (distended, esteban serosang) Extremities: No clubbing, No cyanosis Skin: No rashes, No breakdown FINAL DIAGNOSIS Problems Medical Problems: (1) Pancreatitis Status: Acute Brief Hospital Course Mr. Barron is a 44 old [sex] who presented with [ GALLSTONE PANCREATITIS] CONDITION AT DISCHARGE: Improved Discharge Medications Current Medications Ondansetron HCl (Zofran) 4 mg 1X ONCE IVP Last administered on 05/12/20at 02:22; Start 05/12/20 at 02:00; Stop 05/12/20 at 02:02; Status DC Morphine Sulfate (Morphine Sulfate) 5 mg 1X ONCE IV Last administered on 05/12/20at 02:25; Start 05/12/20 at 02:00; Stop 05/12/20 at 02:02; Status DC Iohexol (Omnipaque 240 Mg/ml) 30 ml 1X ONCE PO Last administered on 05/12/20at 02:20; Start 05/12/20 at 02:15; Stop 05/12/20 at 02:16; Status DC Iohexol (Omnipaque 300 Mg/ml) 75 ml 1X ONCE IV Last administered on 05/12/20at 03:45; Start 05/12/20 at 02:15; Stop 05/12/20 at 02:16; Status DC Info (CONTRAST GIVEN -- Rx MONITORING) 1 each PRN DAILY PRN MC SEE COMMENTS; Start 05/12/20 at 02:15; Stop 05/14/20 at 02:14; Status DC Morphine Sulfate (Morphine Sulfate) 2 mg PRN Q2HR PRN IV PAIN; Start 05/12/20 at 05:30; Stop 05/12/20 at 08:11; Status DC Sodium Chloride 1,000 ml @ 125 mls/hr Q8H IV Last administered on 05/12/20at 22:04; Start 05/12/20 at 05:30; Stop 05/13/20 at 05:29; Status DC Morphine Sulfate (Morphine Sulfate) 5 mg 1X ONCE IV Last administered on 05/12/20at 05:56; Start 05/12/20 at 05:30; Stop 05/12/20 at 05:31; Status DC Hydromorphone HCl (Dilaudid) 2 mg PRN Q4HRS PRN IVP PAIN, 1st CHOICE; Start 05/12/20 at 08:00 Fentanyl Citrate (Fentanyl 2ml Vial) 50 mcg PRN Q2HR PRN IVP PAIN, 2nd CHOICE Last administered on 05/14/20at 23:20; Start 05/12/20 at 08:00 Ondansetron HCl (Zofran) 4 mg PRN Q6HRS PRN IVP NAUSEA/VOMITING, 1st CHOICE; Start 05/12/20 at 08:00 Prochlorperazine Edisylate (Compazine) 10 mg PRN Q6HRS PRN IVP NAUSEA/VOMITING, 2nd CHOICE; Start 05/12/20 at 08:00 Al Hydroxide/Mg Hydroxide (Mylanta Plus Xs) 30 ml PRN Q3HRS PRN PO HEARTBURN / GAS Last administered on 05/15/20at 08:37; Start 05/12/20 at 08:00 Calcium Carbonate/ Glycine (Tums) 500 mg PRN Q3HRS PRN PO UPSET STOMACH; Start 05/12/20 at 08:00 Zolpidem Tartrate (Ambien) 5 mg PRN QHS PRN PO INSOMNIA, MAY REPEAT IN 1HR Last administered on 05/12/20at 22:16; Start 05/12/20 at 08:00 Acetaminophen (Tylenol) 650 mg PRN Q6HRS PRN PO Headaches, Temp > 101.5F Last administered on 05/13/20at 08:27; Start 05/12/20 at 08:00 Magnesium Hydroxide (Milk Of Magnesia) 2,400 mg PRN Q12HR PRN PO CONSTIPATION; Start 05/12/20 at 08:00 Bisacodyl (Dulcolax Supp) 10 mg PRN DAILY PRN SC CONSTIPATION; Start 05/12/20 at 08:00 Heparin Sodium (Porcine) (Heparin Sodium) 5,000 unit Q8HRS SQ Last administered on 05/15/20at 12:00; Start 05/12/20 at 14:00 Insulin Human Lispro (HumaLOG) 0-7 UNITS TIDWMEALS SQ ; Start 05/12/20 at 12:00 Dextrose (Dextrose 50%-Water Syringe) 12.5 gm PRN Q15MIN PRN IV SEE COMMENTS; Start 05/12/20 at 08:15 Sodium Chloride 1,000 ml @ 125 mls/hr Q8H IV Last administered on 05/15/20at 08:38; Start 05/13/20 at 17:00 Cefazolin Sodium/ Dextrose 50 ml @ 100 mls/hr 1X PREOP ONCE IV Last administered on 05/14/20at 15:37; Start 05/14/20 at 06:00; Stop 05/14/20 at 06:29; Status DC Propofol (Diprivan) 200 mg STK-MED ONCE IV ; Start 05/14/20 at 13:40; Stop 05/14/20 at 13:40; Status DC Dexamethasone Sodium Phosphate (Decadron) 4 mg STK-MED ONCE .ROUTE ; Start 05/14/20 at 13:40; Stop 05/14/20 at 13:40; Status DC Lidocaine HCl (Lidocaine Pf 2% Vial) 5 ml STK-MED ONCE .ROUTE ; Start 05/14/20 at 13:40; Stop 05/14/20 at 13:40; Status DC Ondansetron HCl (Zofran) 4 mg STK-MED ONCE .ROUTE ; Start 05/14/20 at 13:40; Stop 05/14/20 at 13:40; Status DC Rocuronium [place] (Zemuron) 50 mg STK-MED ONCE .ROUTE ; Start 05/14/20 at 13:40; Stop 05/14/20 at 13:40; Status DC Succinylcholine Chloride (Anectine) 200 mg STK-MED ONCE .ROUTE ; Start 05/14/20 at 13:44; Stop 05/14/20 at 13:44; Status DC Fentanyl Citrate (Fentanyl 2ml Vial) 100 mcg STK-MED ONCE .ROUTE ; Start 05/14/20 at 14:15; Stop 05/14/20 at 14:15; Status DC Midazolam HCl (Versed) 2 mg STK-MED ONCE .ROUTE ; Start 05/14/20 at 14:15; Stop 05/14/20 at 14:15; Status DC Ringer's Solution 1,000 ml @ 100 mls/hr Q10H IV Last administered on 05/14/20at 14:26; Start 05/14/20 at 14:30; Stop 05/15/20 at 10:21; Status DC Iohexol (Omnipaque 300 Mg/ml) 50 ml STK-MED ONCE .ROUTE Last administered on 05/14/20at 16:08; Start 05/14/20 at 14:40; Stop 05/14/20 at 14:40; Status DC Cellulose (Surgicel Hemostat 4x8) 1 each STK-MED ONCE .ROUTE Last administered on 05/14/20at 16:36; Start 05/14/20 at 14:40; Stop 05/14/20 at 14:40; Status DC Bisacodyl (Dulcolax Supp) 10 mg STK-MED ONCE .ROUTE Last administered on 05/14/20at 16:49; Start 05/14/20 at 14:40; Stop 05/14/20 at 14:40; Status DC Heparin Sodium (Porcine) 1000 unit/Sodium Chloride 1,001 ml @ 1,001 mls/hr 1X ONCE IRR Last administered on 05/14/20at 16:00; Start 05/14/20 at 15:00; Stop 05/14/20 at 15:59; Status DC Bupivacaine HCl/ Epinephrine Bitart (Sensorcain-Epi 0.5%-1:407694 Mpf) 30 ml 1X ONCE INJ Last administered on 05/14/20at 16:00; Start 05/14/20 at 15:00; Stop 05/14/20 at 15:01; Status DC Sevoflurane (Ultane) 60 ml STK-MED ONCE IH ; Start 05/14/20 at 16:06; Stop 05/14/20 at 16:06; Status DC Ketorolac Tromethamine (Toradol 30mg Vial) 30 mg STK-MED ONCE .ROUTE ; Start 05/14/20 at 16:06; Stop 05/14/20 at 16:06; Status DC Lidocaine HCl (Lidocaine Pf 2% Vial) 5 ml STK-MED ONCE .ROUTE ; Start 05/14/20 at 16:41; Stop 05/14/20 at 16:42; Status DC Fentanyl Citrate (Fentanyl 2ml Vial) 100 mcg STK-MED ONCE .ROUTE ; Start 05/14/20 at 17:06; Stop 05/14/20 at 17:07; Status DC Ondansetron HCl (Zofran) 4 mg PRN Q6HRS PRN IV NAUSEA/VOMITING; Start 05/14/20 at 17:30; Stop 05/15/20 at 17:29 Fentanyl Citrate (Fentanyl 2ml Vial) 25 mcg PRN Q5MIN PRN IV MILD PAIN 1-3; Start 05/14/20 at 17:30; Stop 05/15/20 at 17:29 Fentanyl Citrate (Fentanyl 2ml Vial) 50 mcg PRN Q5MIN PRN IV MODERATE TO SEVERE PAIN Last administered on 05/14/20at 20:27; Start 05/14/20 at 17:30; Stop 05/15/20 at 17:29 Morphine Sulfate (Morphine Sulfate) 1 mg PRN Q10MIN PRN IV SEVERE PAIN 7-10; Start 05/14/20 at 17:30; Stop 05/15/20 at 17:29 Ringer's Solution 1,000 ml @ 30 mls/hr Q24H IV ; Start 05/14/20 at 17:30; Stop 05/15/20 at 05:29; Status DC Lidocaine HCl (Xylocaine-Mpf 1% 2ml Vial) 2 ml PRN 1X PRN ID PRIOR TO IV START; Start 05/14/20 at 17:30; Stop 05/15/20 at 17:29 Hydromorphone HCl (Dilaudid) 0.5 mg PRN Q10MIN PRN IV SEV PAIN, Second choice; Start 05/14/20 at 17:30; Stop 05/15/20 at 17:29 Prochlorperazine Edisylate (Compazine) 5 mg PACU PRN PRN IV NAUSEA, MRX1; Start 05/14/20 at 17:30; Stop 05/15/20 at 17:29 Fentanyl Citrate (Fentanyl 2ml Vial) 100 mcg STK-MED ONCE .ROUTE ; Start 05/14/20 at 17:49; Stop 05/14/20 at 17:50; Status DC Ringer's Solution 1,000 ml @ 100 mls/hr Q10H IV ; Start 05/14/20 at 20:30 Acetaminophen/ Hydrocodone Bitart (Lortab 5/325) 1 tab PRN Q4HRS PRN PO MILD PAIN 1-3 Last administered on 05/15/20at 08:37; Start 05/14/20 at 20:30 Naloxone HCl (Narcan) 0.4 mg PRN Q2MIN PRN IV SEE INSTRUCTIONS; Start 05/14/20 at 20:30 Sodium Chloride 1,000 ml @ 25 mls/hr Q24H IV ; Start 05/14/20 at 20:30 Famotidine (Pepcid) 20 mg QHS PO ; Start 05/15/20 at 21:00 Active Scripts Active Reported Probiotic (Lactobacillus Acidophilus) 1 Each Capsule 1 Each PO BID Fish Oil 1,000 Mg Capsule ([place]-3 Fatty Acids/Fish Oil) 1 Each Capsule 1 Each PO BID Calcium + Vitamin D Tablet (Calcium Carbonate/Vitamin D3) 1 Each Tablet 1 Each PO BID Metformin Hcl 500 Mg Tablet 500 Mg PO BIDWMEALS No Known Medications Prior To Admisstion (Info) Each 1 Each MC 1X Vital Signs Vital Signs Date Time Temp Pulse Resp B/P (MAP) Pulse Ox O2 Delivery O2 Flow Rate FiO2 05/15/20 11:00 97.9 58 18 103/60 (74) 97 Room Air 97.9 05/15/20 08:00 6.0 Labs Laboratory Tests Test 05/13/20 17:10 05/13/20 20:52 05/13/20 22:45 05/14/20 07:10 Glucose (Fingerstick) 111 mg/dL (70-99) 98 mg/dL (70-99) 93 mg/dL (70-99) Coronavirus (PCR) Not detected (Not Detected) SARS-CoV-2 Antigen (Rapid) Negative (NEGATIVE) Test 05/14/20 07:46 05/14/20 08:16 05/14/20 11:28 05/14/20 15:31 Sodium Level 145 mmol/L (136-145) Potassium Level 4.0 mmol/L (3.5-5.1) Chloride Level 109 mmol/L (98-107) Carbon Dioxide Level 25 mmol/L (21-32) Anion Gap 11 (6-14) Blood Urea Nitrogen 8 mg/dL (8-26) Creatinine 0.8 mg/dL (0.7-1.3) Estimated GFR (Cockcroft-Gault) 104.5 Glucose Level 92 mg/dL (70-99) Calcium Level 8.2 mg/dL (8.5-10.1) White Blood Count 5.0 x10^3/uL (4.0-11.0) Red Blood Count 4.60 x10^6/uL (4.30-5.70) Hemoglobin 13.4 g/dL (13.0-17.5) Hematocrit 39.5 % (39.0-53.0) Mean Corpuscular Volume 86 fL (79-100) Mean Corpuscular Hemoglobin 29 pg (25-35) Mean Corpuscular Hemoglobin Concent 34 g/dL (31-37) Red Cell Distribution Width 13.6 % (11.5-14.5) Platelet Count 239 x10^3/uL (140-400) Neutrophils (%) (Auto) 59 % (31-73) Lymphocytes (%) (Auto) 31 % (24-48) Monocytes (%) (Auto) 6 % (0-9) Eosinophils (%) (Auto) 4 % (0-3) Basophils (%) (Auto) 1 % (0-3) Neutrophils # (Auto) 2.9 x10^3/uL (1.8-7.7) Lymphocytes # (Auto) 1.5 x10^3/uL (1.0-4.8) Monocytes # (Auto) 0.3 x10^3/uL (0.0-1.1) Eosinophils # (Auto) 0.2 x10^3/uL (0.0-0.7) Basophils # (Auto) 0.0 x10^3/uL (0.0-0.2) Lipase 321 U/L (73-393) Glucose (Fingerstick) 97 mg/dL (70-99) 77 mg/dL (70-99) Test 05/14/20 17:34 05/14/20 20:26 05/15/20 06:23 05/15/20 07:19 Glucose (Fingerstick) 112 mg/dL (70-99) 161 mg/dL (70-99) 117 mg/dL (70-99) White Blood Count 6.2 x10^3/uL (4.0-11.0) Red Blood Count 4.40 x10^6/uL (4.30-5.70) Hemoglobin 13.0 g/dL (13.0-17.5) Hematocrit 37.2 % (39.0-53.0) Mean Corpuscular Volume 85 fL (79-100) Mean Corpuscular Hemoglobin 30 pg (25-35) Mean Corpuscular Hemoglobin Concent 35 g/dL (31-37) Red Cell Distribution Width 13.3 % (11.5-14.5) Platelet Count 253 x10^3/uL (140-400) Neutrophils (%) (Auto) 73 % (31-73) Lymphocytes (%) (Auto) 20 % (24-48) Monocytes (%) (Auto) 6 % (0-9) Eosinophils (%) (Auto) 1 % (0-3) Basophils (%) (Auto) 1 % (0-3) Neutrophils # (Auto) 4.6 x10^3/uL (1.8-7.7) Lymphocytes # (Auto) 1.2 x10^3/uL (1.0-4.8) Monocytes # (Auto) 0.3 x10^3/uL (0.0-1.1) Eosinophils # (Auto) 0.0 x10^3/uL (0.0-0.7) Basophils # (Auto) 0.0 x10^3/uL (0.0-0.2) Sodium Level 140 mmol/L (136-145) Potassium Level 4.3 mmol/L (3.5-5.1) Chloride Level 108 mmol/L (98-107) Carbon Dioxide Level 20 mmol/L (21-32) Anion Gap 12 (6-14) Blood Urea Nitrogen 7 mg/dL (8-26) Creatinine 0.6 mg/dL (0.7-1.3) Estimated GFR (Cockcroft-Gault) 145.7 Glucose Level 102 mg/dL (70-99) Calcium Level 8.1 mg/dL (8.5-10.1) Total Bilirubin 0.5 mg/dL (0.2-1.0) Direct Bilirubin 0.2 mg/dL (0.0-0.2) Aspartate Amino Transf (AST/SGOT) 45 U/L (15-37) Alanine Aminotransferase (ALT/SGPT) 68 U/L (16-63) Alkaline Phosphatase 63 U/L (46-116) Total Protein 5.8 g/dL (6.4-8.2) Albumin 2.9 g/dL (3.4-5.0) Test 05/15/20 11:30 Glucose (Fingerstick) 135 mg/dL (70-99) Laboratory Tests Test 05/14/20 15:31 05/14/20 17:34 05/14/20 20:26 05/15/20 06:23 Glucose (Fingerstick) 77 mg/dL (70-99) 112 mg/dL (70-99) 161 mg/dL (70-99) White Blood Count 6.2 x10^3/uL (4.0-11.0) Red Blood Count 4.40 x10^6/uL (4.30-5.70) Hemoglobin 13.0 g/dL (13.0-17.5) Hematocrit 37.2 % (39.0-53.0) Mean Corpuscular Volume 85 fL (79-100) Mean Corpuscular Hemoglobin 30 pg (25-35) Mean Corpuscular Hemoglobin Concent 35 g/dL (31-37) Red Cell Distribution Width 13.3 % (11.5-14.5) Platelet Count 253 x10^3/uL (140-400) Neutrophils (%) (Auto) 73 % (31-73) Lymphocytes (%) (Auto) 20 % (24-48) Monocytes (%) (Auto) 6 % (0-9) Eosinophils (%) (Auto) 1 % (0-3) Basophils (%) (Auto) 1 % (0-3) Neutrophils # (Auto) 4.6 x10^3/uL (1.8-7.7) Lymphocytes # (Auto) 1.2 x10^3/uL (1.0-4.8) Monocytes # (Auto) 0.3 x10^3/uL (0.0-1.1) Eosinophils # (Auto) 0.0 x10^3/uL (0.0-0.7) Basophils # (Auto) 0.0 x10^3/uL (0.0-0.2) Sodium Level 140 mmol/L (136-145) Potassium Level 4.3 mmol/L (3.5-5.1) Chloride Level 108 mmol/L (98-107) Carbon Dioxide Level 20 mmol/L (21-32) Anion Gap 12 (6-14) Blood Urea Nitrogen 7 mg/dL (8-26) Creatinine 0.6 mg/dL (0.7-1.3) Estimated GFR (Cockcroft-Gault) 145.7 Glucose Level 102 mg/dL (70-99) Calcium Level 8.1 mg/dL (8.5-10.1) Total Bilirubin 0.5 mg/dL (0.2-1.0) Direct Bilirubin 0.2 mg/dL (0.0-0.2) Aspartate Amino Transf (AST/SGOT) 45 U/L (15-37) Alanine Aminotransferase (ALT/SGPT) 68 U/L (16-63) Alkaline Phosphatase 63 U/L (46-116) Total Protein 5.8 g/dL (6.4-8.2) Albumin 2.9 g/dL (3.4-5.0) Test 05/15/20 07:19 05/15/20 11:30 Glucose (Fingerstick) 117 mg/dL (70-99) 135 mg/dL (70-99) Allergies Allergies Coded Allergies Type Severity Reaction Last Updated Verified No Known Drug Allergies 01/30/19 No Disposition/Orders: D/C to Home Justicifation of Admission Dx: Justifications for Admission: Justification of Admission Dx: Yes NOEMY SCOTT MD May 15, 2020 13:12
[2020-05-15] MEDS ORDERED: BISA10SU4 PR (13:16)
[2020-05-15] MEDS ORDERED: FAMO20TA5 PO (13:16)
[2020-05-15] MEDS ORDERED: ACET325T9 PO (13:16)
[2020-05-15] MEDS ORDERED: HYDR-2761 PO (13:16)
--- NOTE | 2020-05-15 13:17 | DISCH ---
DISCHARGE INSTRUCTIONS Condition on Discharge Condition on Discharge: Stable Activity After Discharge Activity Instructions for Disc: Activity as tolerated Lifting Instructions after Dis: No heavy lifting, No pulling or pushing, Do not lift >10 pounds Driving Instructions after Dis: Do not drive Diet after Discharge Diet after Discharge: Regular Liquid Texture: Thin Liquid Contacting the DRDavina after DC Call your doctor for: If your condition worsens Warfarin Follow-Up Warfarin Follow UP: SEE SURGERY SOON DIRECTED NOEMY SCOTT MD May 15, 2020 13:17
--- NOTE | 2020-05-15 13:42 | NUR ---
Discharge Note: REAGAN BONILLA Discharge instructions and discharge home medications reviewed with Patient and a copy given. All questions have been answered and understanding verbalized. The following instructions and handouts were given: d/c instructions Discontinued lines and drains: Peripheral IV intact. Patient discharged to Home or Self Care with Family Member via Wheelchair
[2020-05-15] MEDS ORDERED: FAMOTIDINE 20 MG TABLET. PO SCH (21:00)
--- NOTE | 2020-05-18 09:01 | PATHOLOGY ---
[facility] Accession Number: [id number] . 01 Material submitted: . gallbladder - GALLBLADDER . 01 Clinical history: . GALLSTONE PANCREATITIS . 02 Diagnosis: Gallbladder, laparoscopic cholecystectomy: - Cholelithiasis. - Chronic and focal acute cholecystitis with increased eosinophils. - Reactive changes of gallbladder neck lymph node. LBQ 05/17/2020 1033 Local . 02 Comment: There is no evidence of malignancy. (JPM/db; 05/17/2020) . 02 Electronically signed: . Gabriel Foster MD, Pathologist NPI- [id number] . 01 Gross description: . The specimen is received in formalin, labeled "Edi Crummel, gallbladder". Received is an intact gallbladder measuring 10.2 x 4.3 x 4.1 cm in greatest dimensions displaying a pink-rasheed serosal surface. Opening the specimen reveals a velvety, light brown mucosa with a gallbladder wall thickness of 0.1 cm. Calculi are present displaying a bright yellow and nodular appearance, and no masses or lesions are noted grossly. Toward the proximal margin, a single lymph node is identified measuring 0.7 cm in maximum dimensions. Booster Pump Oiler sections, to include the proximal margin and bisected lymph node, are submitted in cassette A1. (CAA; 05/16/2020) QAC/QAC 05/16/2020 1137 Local . 02 Pathologist provided ICD-10: K80.12 . 02 CPT . 832678 Specimen Comment: A courtesy copy of this report has been sent to [phone] Specimen Comment: Report sent to Specimen Comment: A duplicate report has been generated due to demographic updates. Performed at: [address], [place], [place] [id number] MD Natanael Cuellar MD Phone: [phone] Performed at: [address] [id number] MD Gabriel Foster MD Phone: [phone]
== END 2020-05-15 15:26 | disposition home or self-care (01) | DRG 417 ==
LOC: ER 00:34 → 2 SOUTH 05:54 → 5 NORTH 05-13 20:45
PROVIDERS: ADMIT Internal Medicine; ATTEND Internal Medicine
PROC: BF101ZZ Fluoroscopy of Bile Ducts using Low Osmolar Contrast (ICD-10-PCS; 2020-05-14)
PROC: 0FT44ZZ Resection of Gallbladder, Percutaneous Endoscopic Approach (ICD-10-PCS; principal; 2020-05-14 14:30)
DX: K80.10 Calculus of gallbladder with chronic cholecystitis without obstruction (principal); K85.10 Biliary acute pancreatitis without necrosis or infection; E11.9 Type 2 diabetes mellitus without complications; E66.01 Morbid (severe) obesity due to excess calories; K40.90 Unilateral inguinal hernia, without obstruction or gangrene, not specified as recurrent; K76.0 Fatty (change of) liver, not elsewhere classified; Z98.84 Bariatric surgery status; Z20.822 Contact with and (suspected) exposure to COVID-19; Z68.32 Body mass index [BMI] 32.0-32.9, adult; Z90.49 Acquired absence of other specified parts of digestive tract
CPT/HCPCS: 36415; 74177; 74300; 76705; 80048; 80053; 80076; 81001; 82962; 83036; 83690; 84478; 85025; 86803; 87426; 88304; 96374; 96375; 96376; 99285; J0330; J0690; J1100; J1644; J1815; J1885; J2250; J2270; J2405; J2704; J3010; J7030; J7120; Q9966; Q9967; U0003; G0378